=== PATIENT | male | born 1960 | race Caucasian/White ===

== ENCOUNTER 2018-08-14 13:59 | Inpatient (IN) | payer MEDICARE, MEDICAID ==
[~2018-08-14] VITALS: Ht 170.2 cm; Wt 108.4 kg
--- NOTE | 2018-08-14 14:09 | NUR ---
patient [id number], from [facility] c/o chest pain, pressure like 1 hour ago. on room air, breathing evenly and unlabored. connected to the monitor and pulse ox. kept comfortable, will continue to monitor accordingly.
[2018-08-14 14:54] LABS: BASOPHILS % (AUTO) 0.5 % (0.0-2.0); EOSINOPHILS % (AUTO) 3.8 % (0.0-6.0); HEMATOCRIT 37 % (39-51); HEMOGLOBIN 12.6 g/dL (13.5-17.5); LYMPHOCYTES # (AUTO) 1.2 /CMM (0.8-4.8); LYMPHOCYTES % (AUTO) 12.6 % (20.0-44.0); MEAN CORPUSCULAR HGB CONC 34 g/dl (31.0-36.0); MEAN CORPUSCULAR VOLUME 90 fL (80-96); MONOCYTES # (AUTO) 0.7 /CMM (0.1-1.30); MONOCYTES % (AUTO) 6.9 % (2.0-12.0); NEUTROPHILS # (AUTO) 7.2 /CMM (1.8-8.9); NEUTROPHILS % (AUTO) 76.2 % (43.0-81.0); PLATELET COUNT (AUTO) 254 /CMM (150-450); RED BLOOD CELL COUNT(AUTO) 4.15 MIL/uL (4.5-6.0); WHITE BLOOD COUNT (AUTO) 9.4 K/uL (4.3-11.0)
[2018-08-14 15:03] LABS: CARBON DIOXIDE 28 mmol/L (21-32); CHLORIDE 106 mmol/L (98-107); CREATININE 0.9 mg/dL (0.6-1.3); GLUCOSE 108 mg/dL (74-106); POTASSIUM 3.8 mmol/L (3.5-5.1); SODIUM SERUM 139 mmol/L (136-145); UREA NITROGEN, BLOOD 21 mg/dL (7-18)
--- NOTE | 2018-08-14 15:44 | NUR ---
CALLED ANGEL RIOS NP
--- NOTE | 2018-08-14 16:40 | NUR ---
REQUESTED TELE BED FOR THIS PATIENT
--- NOTE | 2018-08-14 17:26 | NUR ---
CALLED [facility] AND SPOKE TO TEN RN FOR NERI
[2018-08-14 18:14] LABS: MAGNESIUM 1.9 mg/dL (1.8-2.4)
--- NOTE | 2018-08-14 18:20 | NUR ---
FLUX CORE WELDERWHEEL POLISHER NOTES PATIENT RECEIVED VIA [facility] WITH ER STAFF. A/O 4 AND ABLE TO MAKE NEEDS KNOWN. ASSESSED NO SHORTNESS OF BREATH. ABDOMEN SOFT AND NON DISTENDED WITH ACTIVE BOWEL SOUNDS. DENIES PAIN AND DISCOMFORT AT THIS TIME. AMBULATORY WITH STAND BY ASSIST. IV SITE PRESENT ON RIGHT ANTECUBITAL GAUGE 20 WITH NO S/SX OF INFILTRATION. PLACED HEAD OF BED ELEVATED. ALL CONCERNS ADDRESSED. PLACED CALL LIGHT WITHIN REACH.
[2018-08-14 18:24] LABS: THYROID STIMULATING HORMONE 3.558 uIU/mL (0.358-3.74)
--- NOTE | 2018-08-14 18:43 | NUR ---
wheeled patient via gurney accompanied by EMT and rn in no apparent distress noted. Migdalia at bedside to assume care.
[2018-08-14] MEDS: PANTOPRAZOLE 40 MG TABLET.DR PO SCH (18:47)
[2018-08-14] MEDS: METOPROLOL TARTRATE 50 MG TABLET PO SCH ×2 (18:47→23:38)
[2018-08-14] MEDS ORDERED: MAGNESIUM HYDROXIDE 30 ML UDC PO PRN (19:00)
[2018-08-14] MEDS ORDERED: MORPHINE SULFATE INJ 2 MG/ML DISP.SYRIN IV PRN (19:00)
[2018-08-14] MEDS ORDERED: MAG HYDROX/AL HYDROX/SIMETH 30 ML UDC PO PRN (19:00)
[2018-08-14] MEDS ORDERED: ACETAMINOPHEN 325 MG TABLET PO PRN (19:00)
[2018-08-14] MEDS ORDERED: HYDROCODONE/APAP 5/325MG 1 EACH TABLET PO PRN (19:00)
[2018-08-14] MEDS ORDERED: ZOLPIDEM TARTRATE 5 MG TABLET PO PRN (19:00)
[2018-08-14] MEDS ORDERED: IV NS 0.9% 1,000 ML IV PRN (19:00)
[2018-08-14] MEDS ORDERED: ENOXAPARIN SODIUM 40 MG/0.4 ML DISP.SYRIN SQ SCH (19:00)
[2018-08-14] MEDS ORDERED: ONDANSETRON HCL/PF 4 MG/2 ML VIAL IVP PRN (19:00)
[2018-08-14] MEDS ORDERED: Z GUARD REMEDY 2 OZ OINT TP PRN (19:00)
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
[2018-08-14] MEDS: ALBUTEROL FS 2.5 MG/0.5 ML VIAL.NEB NEB SCH ×2 (19:12→23:30)
[2018-08-14 20:00] VITALS: BP 146/86
--- NOTE | 2018-08-14 21:14 | NUR ---
ASSISTANT PROFESSOR OF DIETETICS NOTES Terry Herndon made aware of patient's psych issues. Patient is going back to [facility] once cleared by vinyl cutter.
[2018-08-15] VITALS: BP 113/73
--- NOTE | 2018-08-15 03:18 | NUR ---
STERILE PROCESSING TECH NOTES Stool sample for Stool OB collected. Notified labs, spoke with Martin. Sample ready for grain picker at the sample storage.
[2018-08-15 04:00] VITALS: BP 112/70
[2018-08-15 05:07] LABS: OCCULT BLOOD STOOL POSITIVE (NEGATIVE)
[2018-08-15] MEDS: METOPROLOL TARTRATE 50 MG TABLET PO SCH ×3 (05:50→18:00)
--- NOTE | 2018-08-15 06:29 | NUR ---
TECHNICAL SUPPORT ASSISTANT CLOSING NOTES Patient noted intermittently asleep, on RA, no SOB/respiratory distress noted. All nursing needs attended. Kept on bed clean, dry and comfortable. Patient noted ambulating on the hallway to the station, gait stable. Encouraged patient to keep on bed rest as ordered. Patient verbalized understanding but still noted walking to the hallway. Instructed patient to kept on NPO for cardio consult. Patient noted NPO after midnight except meds. No new unsualities noted. On tele monitor with SR noted. Endorsed to the next shift.
[2018-08-15 07:19] LABS: BASOPHILS % (AUTO) 0.2 % (0.0-2.0); EOSINOPHILS % (AUTO) 5.7 % (0.0-6.0); HEMATOCRIT 38 % (39-51); HEMOGLOBIN 12.9 g/dL (13.5-17.5); LYMPHOCYTES % (AUTO) 22.4 % (20.0-44.0); MEAN CORPUSCULAR HGB CONC 34 g/dl (31.0-36.0); MEAN CORPUSCULAR VOLUME 89 fL (80-96); MONOCYTES # (AUTO) 0.6 /CMM (0.1-1.30); MONOCYTES % (AUTO) 6.5 % (2.0-12.0); NEUTROPHILS # (AUTO) 5.9 /CMM (1.8-8.9); NEUTROPHILS % (AUTO) 65.2 % (43.0-81.0); PLATELET COUNT (AUTO) 267 /CMM (150-450); RED BLOOD CELL COUNT(AUTO) 4.29 MIL/uL (4.5-6.0); WHITE BLOOD COUNT (AUTO) 9.1 K/uL (4.3-11.0)
[2018-08-15] MEDS ORDERED: PANTOPRAZOLE 40 MG TABLET.DR PO SCH (07:30)
[2018-08-15 07:45] LABS: ALANINE AMINOTRANSFERASE 21 U/L (12-78); ALBUMIN 3.6 g/dL (3.4-5.0); ALKALINE PHOSPHATASE 66 U/L (46-116); ASPARTATE AMINOTRANSFERASE 20 U/L (15-37); BILIRUBIN,TOTAL 0.2 mg/dL (0.2-1.0); CALCIUM, SERUM 9.2 mg/dL (8.5-10.1); CARBON DIOXIDE 25 mmol/L (21-32); CHLORIDE 107 mmol/L (98-107); CREATININE 1.1 mg/dL (0.6-1.3); GLUCOSE 110 mg/dL (74-106); MAGNESIUM 2.1 mg/dL (1.8-2.4); PHOSPHORUS 3.6 mg/dL (2.5-4.9); POTASSIUM 4.1 mmol/L (3.5-5.1); SODIUM SERUM 143 mmol/L (136-145); TOTAL PROTEIN, SERUM 6.7 g/dL (6.4-8.2); UREA NITROGEN, BLOOD 19 mg/dL (7-18)
[2018-08-15 08:00] VITALS: BP 150/94
--- NOTE | 2018-08-15 08:00 | NUR ---
MS RN NOTES PATIENT IN BED RESTING NO SOB OR ACUTE DISTRESS NOTED. PATIENT ALERT, ORIENTED X3 DENIES ANY PAIN. PATIENT SEEN AMBULATING IN THE HALLWAY. PERIPHERAL IV INTACT PATIENT. BED IN LOW LOCKED POSITION. CALL LIGHT WITHIN REACH.
[2018-08-15] MEDS: ALBUTEROL FS 2.5 MG/0.5 ML VIAL.NEB NEB SCH ×2 (08:23→16:12)
--- NOTE | 2018-08-15 08:30 | NUR ---
RN NOTES PATIENT REFUSED IV HYDRATION, MD AWARE.
[2018-08-15] MEDS ORDERED: ASPIRIN EC 81 MG TABLET.DR PO SCH (09:00)
[2018-08-15] MEDS: PANTOPRAZOLE 40 MG TABLET.DR PO SCH (09:25)
[2018-08-15] MEDS ORDERED: DOCU100C36 PO (09:53)
[2018-08-15] MEDS ORDERED: LORA1TAB PO (09:53)
[2018-08-15] MEDS ORDERED: LEVO50TA8 PO (09:53)
[2018-08-15] MEDS ORDERED: DIVA500T54 PO (09:53)
[2018-08-15] MEDS ORDERED: OMEP20CA10 PO (09:53)
[2018-08-15] MEDS ORDERED: GEMF600T5 PO (09:53)
[2018-08-15] MEDS ORDERED: AMLO5TAB9 PO (09:53)
[2018-08-15] MEDS ORDERED: PROP10TA10 PO (09:53)
[2018-08-15] MEDS ORDERED: LORA2TAB PO (09:53)
[2018-08-15] MEDS ORDERED: RISP2TAB5 PO (09:53)
[2018-08-15] MEDS ORDERED: CLOZ100T PO ×2 (09:53)
[2018-08-15] MEDS: NITROGLYCERIN 0.4 MG/TAB BOTTLE SL PRN ×2 (11:15→11:25)
--- NOTE | 2018-08-15 11:25 | NUR ---
Social service consult requested by DALE Herndon regarding pt. coming to [facility] from [facility] outpatient clinic. Pt. is a 57 year old who was sent to [facility] for chest pain. NADIA met with pt. bedside. Pt. is alert and oriented x 4. Pt. appears clean. When asked questions, pt. is slow to response. Pt. states he was at the [facility] outpatient clinic when he started to experience chest pain. Pt. resides at a [facility] facility located at [address] [place] [address] in [place] [address]. . retail salesperson there is Malika. Pt. states he has been residing at the [facility] since May 25, 2018. Pt. has a psychiatric diagnosis of Schizophrenia with Paranoid Features. Pt. denies any delusions and hallucinations at this time. Pt. would like to be discharged to his [facility] once medically cleared. NADIA updated clinical case manager Lesly Ramey regarding pt's discharge plan.
--- NOTE | 2018-08-15 11:41 | NUR ---
1100 PATIENT SEEN IN BED BREATHING 26 STATES "i AM HAVING CHEST PAIN." RATES PAIN 8/10 NC PLACED O2 ADMINISTERED AT 2LNC. 1105 PATIENT STILL COMPLAINING OF CP 8/10, NITRO ADMINISTEREDS SBP 154, PATIENT BREATHING HEAVILY AND CLENCHED FISTS. Finesse MADE EFFORT TO REACH DR. MCKINNEY TO INFORM OF CP AND PATIENT SYMPTOMS EFFORT. 1115 - BP 145/88 PATIENT STATES PAIN IS 4/10. 1125 PATIENT AGAIN COMPLAINING OF CP STATES PAIN IS 6/10 BP IS 155/75 HR IS 77 NITRO ADMINSTERED FOR SECOND DOSE. 1135 dR. Mckinney CALLED BACK, INFORMED OF PATIENT SYMPTOSM OF POSSIBLE ANXIETY ATTACK, PATIENT HAS NOT HAD HIS PSYC HOME MEDS THIS AM. AND PATIENT RECENT CP; STATES HE WILL REVIEW MED REC, DIRECTED NOT TO ADMINISTER NITRO AT THIS TIME HE WILL PLACE NEW ORDERS.
--- NOTE | 2018-08-15 11:50 | NUR ---
MS RN NOTES SPOKE TO ZHANE STUBBS TO MONITOR PATIENT. ASKED IF MORPHINE IV SHOULD BE ADMINISTERED, STATES TO ADMINISTER NOW . STATES HE WILL EVALUATE PATIENT AND RESTART HOME MEDICATION. MORPHINE IV ADMINISTERED. 1200 PATIENT STATES PAIN 0/10 APPEARS CALM AND COMFORTABLE. WILL CONTINUE TO MONITOR.
[2018-08-15] MEDS ORDERED: IOHEXOL-350 100 ML VIAL IV ONE (12:18)
[2018-08-15] MEDS ORDERED: IV NS 0.9% 250 ML IV ONE (12:18)
[2018-08-15] MEDS ORDERED: CT SWABBABLE VALVE TRANS SET 1 EA INFUS.SET MC ONE (12:18)
[2018-08-15] MEDS ORDERED: LORAZEPAM 1 MG TABLET PO PRN (13:00)
--- NOTE | 2018-08-15 13:00 | NUR ---
MS RN NOTES PATIENT SEEN AND EVALUATED BY ZHANE Dunne NO NEW ORDERS.
--- NOTE | 2018-08-15 13:10 | NUR ---
SW received a call from pt's [facility] provider Minnie [phone] informing SW that they would like to be involved regarding pt's medical care and treatment. Per Minnie she will email SW a summary of pt's current information.
--- NOTE | 2018-08-15 13:28 | NUR ---
Spoke to nurse at 1300hrs, she stated dr dominguez had cxlld exam.
[2018-08-15] MEDS ORDERED: METOPROLOL TARTRATE INJ 5 MG/5 ML AMPUL ONE ×2 (13:43→14:02)
--- NOTE | 2018-08-15 14:15 | NUR ---
patient returned from cta angiogram. during procedure he was given 35 mg metoprolol and one dose of nitro. patient is laying in bed in no apparent distress. vss at [id number]/75, hr 62 temp 98.5 rr of 20. will cont to monitor.
[2018-08-15] MEDS ORDERED: NITROGLYCERIN 0.4 MG/TAB BOTTLE SL ONE (15:00)
[2018-08-15] MEDS ORDERED: METOPROLOL TARTRATE INJ 5 MG/5 ML AMPUL IVP ONE (15:00)
[2018-08-15] MEDS ORDERED: IV NS 0.9% 500 ML IV ONE (15:00)
[2018-08-15 16:00] VITALS: BP 138/64
[2018-08-15] MEDS ORDERED: risperiDONE 1 MG TABLET PO SCH (17:00)
[2018-08-15] MEDS ORDERED: PROPRANOLOL HCL 10 MG TABLET PO SCH (17:00)
[2018-08-15] MEDS ORDERED: DIVALPROEX SODIUM 500 MG TABLET.DR PO SCH (17:00)
[2018-08-15] MEDS ORDERED: GEMFIBROZIL 600 MG TABLET PO SCH (17:00)
[2018-08-15 17:52] VITALS: BP 138/91
--- NOTE | 2018-08-15 18:00 | NUR ---
MS RN NOTES PATIENT SEEN AND EVALUATED BY ZHANE BEDOLLA OF [facility] RESULTS CONSULTED WITH DR. AMEZQUITA WHO CLEARED PATIENT FOR DISCHARGE. PATIENT TO BE DISCHARGED TO [facility].
--- NOTE | 2018-08-15 19:00 | NUR ---
MS RN NOTES PATIENT DISCHARGED TO [facility]. PATIENT ALERT, ORIENTED X3. IN STABLE CONDITION. MD AWARE OF ALL ABNORMAL TESTS. [facility] CALLED FOR PATIENT. DISCHARGE INSTRUCTIONS PROVIDED. PATIENT VERBALIZED UNDERSTANDING. PERIPHERAL IV REMOVED. WITH MINIMAL BLEEDING. ID BAND REMOVED. ALL BELONGINGS ACCOUNTED FOR. BELONGING LIST SIGNED. PATIENT ESCORTED TO [facility] BY CAIN.
--- NOTE | 2018-08-15 19:29 | NUR ---
ms rn close note bedside report given to security technician nurse. patient seen in bed resting. reviewed poc . ivf infusing to rac 20 no s/s of infiltration. bed down call light in reach, endorsed that cream for sacral and perineal area are at the bedside. vss patient continues to be on 2lnc and is breathing at a reg even rate of 18.
[2018-08-15] MEDS ORDERED: LORAZEPAM 1 MG TABLET PO SCH (22:00)
[2018-08-15] MEDS ORDERED: CLOZAPINE 100 MG TABLET PO SCH (22:00)
[2018-08-16] MEDS ORDERED: LEVOTHYROXINE SODIUM 50 MCG TABLET PO SCH (09:00)
[2018-08-16] MEDS ORDERED: CLOZAPINE 100 MG TABLET PO SCH (09:00)
[2018-08-16] MEDS ORDERED: DOCUSATE SODIUM 100 MG CAPSULE PO SCH (09:00)
[2018-08-16] MEDS ORDERED: AMLODIPINE BESYLATE 5 MG TABLET PO SCH (09:00)
== END 2018-08-15 19:00 | disposition home or self-care (01) | DRG 206 ==
LOC: ER 14:04 → TELE 17:06 → MED 08-15 10:12
PROVIDERS: ADMIT Hospitalist; ATTEND Hospitalist
DX: M94.0 Chondrocostal junction syndrome [Tietze] (principal); E78.5 Hyperlipidemia, unspecified; K21.9 Gastro-esophageal reflux disease without esophagitis; I10 Essential (primary) hypertension; D64.9 Anemia, unspecified; F17.200 Nicotine dependence, unspecified, uncomplicated; F41.9 Anxiety disorder, unspecified; J44.9 Chronic obstructive pulmonary disease, unspecified; M19.90 Unspecified osteoarthritis, unspecified site; F20.9 Schizophrenia, unspecified; Z68.37 Body mass index [BMI] 37.0-37.9, adult; E66.9 Obesity, unspecified; Z91.14 Patient's other noncompliance with medication regimen; G47.33 Obstructive sleep apnea (adult) (pediatric); I34.0 Nonrheumatic mitral (valve) insufficiency
CPT/HCPCS: 36415; 71045-TC; 75574; 80048-TC; 80053-TC; 80061-TC; 80305; 82272-TC; 82728-TC; 83540-TC; 83735-TC; 84100-TC; 84439-TC; 84443-TC; 84484-TC; 85025-TC; 87081-TC; 93307-TC; G0378; G0480; J1650; J2270; J3490; J7050; Q9967

== ENCOUNTER 2019-04-16 19:19 | Emergency (ER) | payer MEDICARE, OTHER ==
[~2019-04-16] VITALS: Ht 170.2 cm; Wt 109.3 kg
[~2019-04-16 19:19] MED LIST: AMLO5TAB9 PO; CLOZ100T PO; DIVA500T54 PO; DOCU100C36 PO; GEMF600T5 PO; LEVO50TA8 PO; LORA1TAB PO; LORA2TAB PO; OMEP20CA11 PO; PROP10TA10 PO; RISP2TAB5 PO
--- NOTE | 2019-04-16 19:25 | NUR ---
BIBA FOR C/O CP ALL OVER THE CHEST. NON- RADIATING. -N/V. - DIZZINESS. PLACED ON A MONTIOR ,VSS
--- NOTE | 2019-04-16 19:32 | NUR ---
SHAKIRA PATTON AT BEDSIDE TO BK MUIR.
[2019-04-16] MEDS ORDERED: ASPIRIN 325 MG TABLET ONE (19:42)
[2019-04-16] MEDS ORDERED: HYDROCODONE/APAP 5/325MG 1 EACH TABLET ONE ×2 (19:42→20:42)
[2019-04-16] MEDS ORDERED: ALBUTEROL FS 2.5 MG/3 ML VIAL.NEB ONE (19:51)
[2019-04-16] MEDS ORDERED: IPRATROPIUM NEB FS 0.5 MG/2.5 ML AMPUL.NEB ONE (19:51)
[2019-04-16 19:53] LABS: BASOPHILS # (AUTO) 0.1 /CMM (0.0-0.2); BASOPHILS % (AUTO) 0.9 % (0.0-2.0); EOSINOPHILS % (AUTO) 2.7 % (0.0-6.0); HEMATOCRIT 41 % (39-51); HEMOGLOBIN 13.4 g/dL (13.5-17.5); LYMPHOCYTES # (AUTO) 2.2 /CMM (0.8-4.8); LYMPHOCYTES % (AUTO) 18.8 % (20.0-44.0); MEAN CORPUSCULAR HGB CONC 33 g/dl (31.0-36.0); MEAN CORPUSCULAR VOLUME 89 fL (80-96); MONOCYTES # (AUTO) 0.7 /CMM (0.1-1.30); MONOCYTES % (AUTO) 5.5 % (2.0-12.0); NEUTROPHILS # (AUTO) 8.6 /CMM (1.8-8.9); NEUTROPHILS % (AUTO) 72.1 % (43.0-81.0); PLATELET COUNT (AUTO) 299 /CMM (150-450); RED BLOOD CELL COUNT(AUTO) 4.55 MIL/uL (4.5-6.0); WHITE BLOOD COUNT (AUTO) 11.9 K/uL (4.3-11.0)
[2019-04-16] MEDS ORDERED: HYDROCODONE/APAP 5/325MG 1 EACH TABLET PO ONE ×2 (20:00→21:00)
[2019-04-16] MEDS ORDERED: IPRATROPIUM NEB FS 0.5 MG/2.5 ML AMPUL.NEB NEB ONE (20:00)
[2019-04-16] MEDS ORDERED: ALBUTEROL FS 2.5 MG/3 ML VIAL.NEB CONTNEB ONE (20:00)
[2019-04-16] MEDS ORDERED: ASPIRIN 325 MG TABLET PO ONE (20:00)
[2019-04-16 20:13] LABS: CALCIUM, SERUM 9.8 mg/dL (8.5-10.1)
[2019-04-16] MEDS ORDERED: AZITHROMYCIN 250 MG TABLET ONE (20:43)
--- NOTE | 2019-04-16 20:54 | NUR ---
IV removed. Catheter intact and site benign. Pressure and 4x4 applied to site. No bleeding noted.
[2019-04-16] MEDS ORDERED: AZITHROMYCIN 250 MG TABLET PO ONE (21:00)
--- NOTE | 2019-04-16 22:09 | NUR ---
PT DID NOT WANT TO WAIT FOR THE PROCESS TO BE ACCEPTED AND BS TRANSFERRED TO [facility]. PT WALKED OUT AND REFUSED TO SIGN THE D/C PAPERS. IV LINE WAS D/C'D PRIOR TO D/C
[2019-04-16 22:35] VITALS: BP 127/75
== END 2019-04-16 22:09 | disposition home or self-care (01) ==
LOC: ER 19:20
DX: J40 Bronchitis, not specified as acute or chronic (principal); R07.89 Other chest pain; I10 Essential (primary) hypertension; E78.5 Hyperlipidemia, unspecified; K21.9 Gastro-esophageal reflux disease without esophagitis; E11.9 Type 2 diabetes mellitus without complications; F20.9 Schizophrenia, unspecified; F31.9 Bipolar disorder, unspecified; M19.90 Unspecified osteoarthritis, unspecified site; F17.200 Nicotine dependence, unspecified, uncomplicated; Z79.899 Other long term (current) drug therapy
CPT/HCPCS: 36415; 71045-TC; 80048-TC; 83880; 84484-TC; 85025-TC

== ENCOUNTER 2019-07-24 02:19 | Inpatient (IN) | payer MEDICARE, OTHER ==
[~2019-07-24] VITALS: Ht 172.7 cm; Wt 108.9 kg
[~2019-07-24 02:19] MED LIST changes: -OMEP20CA11 PO; +OMEP20CA15 PO
--- NOTE | 2019-07-24 02:25 | NUR ---
AMANDO FROM [facility] C/O AGGRESSION . PT IS GOING TO BE ADMITTED AT [facility] AND NEEDS TO KALI MEDICALLY CLEARED. NO C/O PAIN OR DISCOMFORT AT THIS TIME
[2019-07-24] MEDS ORDERED: LEVO150T PO (02:36)
[2019-07-24] MEDS ORDERED: ACET325T53 PO (02:36)
[2019-07-24] MEDS ORDERED: FENO48TA6 PO (02:36)
[2019-07-24] MEDS ORDERED: TEMA15CA5 PO (02:36)
[2019-07-24] MEDS ORDERED: ZIPR60CA2 PO (02:36)
[2019-07-24] MEDS ORDERED: LORA-259 PO (02:36)
[2019-07-24] MEDS ORDERED: BENA10TA74 PO (02:36)
[2019-07-24 02:45] LABS: BASOPHILS # (AUTO) 0.1 /CMM (0.0-0.2); BASOPHILS % (AUTO) 0.5 % (0.0-2.0); EOSINOPHILS % (AUTO) 2.3 % (0.0-6.0); HEMATOCRIT 41 % (39-51); HEMOGLOBIN 13.3 g/dL (13.5-17.5); LYMPHOCYTES # (AUTO) 2.1 /CMM (0.8-4.8); MEAN CORPUSCULAR HGB CONC 33 g/dl (31.0-36.0); MEAN CORPUSCULAR VOLUME 87 fL (80-96); MONOCYTES # (AUTO) 0.9 /CMM (0.1-1.30); MONOCYTES % (AUTO) 6.8 % (2.0-12.0); NEUTROPHILS # (AUTO) 9.2 /CMM (1.8-8.9); NEUTROPHILS % (AUTO) 73.4 % (43.0-81.0); PLATELET COUNT (AUTO) 275 /CMM (150-450); RED BLOOD CELL COUNT(AUTO) 4.69 MIL/uL (4.5-6.0); WHITE BLOOD COUNT (AUTO) 12.6 K/uL (4.3-11.0)
[2019-07-24 02:53] LABS: CALCIUM, SERUM 9.1 mg/dL (8.5-10.1); CARBON DIOXIDE 26 mmol/L (21-32); CHLORIDE 106 mmol/L (98-107); CREATININE 1.3 mg/dL (0.6-1.3); GLUCOSE 122 mg/dL (74-106); POTASSIUM 4.1 mmol/L (3.5-5.1); SODIUM SERUM 141 mmol/L (136-145); UREA NITROGEN, BLOOD 21 mg/dL (7-18)
[2019-07-24 02:54] LABS: APPEARANCE,URINE Clear (CLEAR); BILIRUBIN,URINE Negative (NEGATIVE); BLOOD, URINE Trace-intact Ery/uL (NEGATIVE); COLOR,URINE Yellow (YELLOW); KETONES,URINE Negative (NEGATIVE); LEUKOCYTE ESTERASE ,URINE Negative (NEGATIVE); NITRITE, URINE Negative (NEGATIVE); PROTEIN,URINE Negative (NEGATIVE); UGLUCOSE Negative (NEGATIVE); UROBILINOGEN,URINE 0.2 EU/dL (0.2)
[2019-07-24 03:01] LABS: ALANINE AMINOTRANSFERASE 32 U/L (12-78); ALBUMIN 3.6 g/dL (3.4-5.0); ALKALINE PHOSPHATASE 37 U/L (46-116); ASPARTATE AMINOTRANSFERASE 22 U/L (15-37); BILIRUBIN,DIRECT 0.1 mg/dL (0.0-0.2); BILIRUBIN,TOTAL 0.2 mg/dL (0.2-1.0); TOTAL PROTEIN, SERUM 6.7 g/dL (6.4-8.2)
[2019-07-24 03:04] LABS: ACETAMINOPHEN 0 ug/ml (10-30); ALCOHOL, BLOOD < 3 mg/dL (0-0); SALICYLATE 2.7 mg/dL (2.8-20.0)
--- NOTE | 2019-07-24 03:34 | NUR ---
REPORT GIVEN TO FAO AT [facility]
[2019-07-24 03:48] LABS: BACTERIA,URINE Few /HPF (None Seen); RBC,URINE 0-2 /HPF (0-2); SQUAMOUS EPITHELIAL CELL,UR Few /HPF (None Seen); WBC,URINE 0-2 /HPF (0-3)
[2019-07-24 04:00] VITALS: BP 138/82
[2019-07-24 04:01] VITALS: BP 138/82
--- NOTE | 2019-07-24 04:02 | NUR ---
PT WAS TRANSFERRED TO [facility] IN STABLE CONDITION.
[2019-07-24] MEDS ORDERED: MAGNESIUM HYDROXIDE 30 ML UDC PO PRN (04:30)
[2019-07-24] MEDS ORDERED: ACETAMINOPHEN 325 MG TABLET PO PRN (04:30)
[2019-07-24] MEDS ORDERED: BLOOD SUGAR DIAGNOSTIC 1 EACH STRIP IN ONE (04:30)
[2019-07-24] MEDS ORDERED: MAG HYDROX/AL HYDROX/SIMETH 30 ML UDC PO PRN (04:30)
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
[2019-07-24] MEDS ORDERED: LORAZEPAM 1 MG TABLET PO PRN (06:30)
[2019-07-24] MEDS ORDERED: ZOLPIDEM TARTRATE 5 MG TABLET PO PRN (06:30)
--- NOTE | 2019-07-24 06:38 | NUR ---
[facility] RN NOTE: NOTIFIED DR. CRUZ OF THE ADMISSION WITH ORDER TO FOLLOW THE STANDING ORDERS NOTED AND CARRIED OUT. NO NEW ORDERS GIVEN.
[2019-07-24 08:00] VITALS: BP 141/94
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
--- NOTE | 2019-07-24 11:51 | NUR ---
Family Contact Attempt: SW attempted to call the pts mother, Dunia ([phone]), three times but each time there was a busy dial tone so the SW was unable to make contact.
--- NOTE | 2019-07-24 11:52 | NUR ---
Facility Contact Attempt: SW called the facility the pt came from called [facility] ([phone]) about three times but was met with the message "We are sorry your call cannot be completed at this time. Please hang up and try your call again later. Thank you."
--- NOTE | 2019-07-24 11:53 | NUR ---
Psychosocial Attempt: After the SW was unable to make contact with the pt, the pts mother and the pts facility the SW looked through the notes from his previous visits and saw a note that stated that he had a , Latesha ([phone]). SW called this number and it led her to [facility] and the studio receptionist stated that the pt was discharged a long time ago and all of his information is locked up so she cannot provide any information to the SW.
[2019-07-24] MEDS ORDERED: LEVOTHYROXINE SODIUM 150 MCG TABLET PO SCH ×2 (13:30)
[2019-07-24] MEDS: BENAZEPRIL HCL 10 MG TABLET PO SCH (13:43)
[2019-07-24] MEDS: LEVOTHYROXINE SODIUM 75 MCG TABLET PO SCH (14:19)
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
[2019-07-24 16:00] VITALS: BP 112/54
[2019-07-24 20:00] VITALS: BP 138/78
[2019-07-24] MEDS: Fenofibrate 48 MG TABLET PO SCH (22:00)
[2019-07-24] MEDS: TEMAZEPAM 15 MG CAPSULE PO SCH (22:05)
[2019-07-24] MEDS: CLOZAPINE 100 MG TABLET PO SCH (22:05)
--- NOTE | 2019-07-24 22:37 | NUR ---
GPS RN NOTES: REFUSED MED PT REFUSED TRICOR 48 MG THAT IS DUE AT 2200. PT STATED, "I DONT NEED THAT! THE THE HELL OUT OF HERE." EXPLAIN RISKS AND BENEFITS. PT STILL REFUSED X3 CONTINUE TO MONITOR.
--- NOTE | 2019-07-25 05:29 | NUR ---
GPS RN NOTES: C/O OF ANXIOUS UPON DOING ROUNDS PT YELLING IN HIS ROOM. ASKED PT IF HE IS ANXIOUS. PT STATED, "YES". OFFERED ATIVAN 1MG PO PRN ORDERED. PT AGREED AND TOLERATED MEDICATION WELL. CONTINUE TO MONITOR.
[2019-07-25 07:53] LABS: CREATININE 1.1 mg/dL (0.6-1.3)
[2019-07-25 08:00] VITALS: BP 167/101
[2019-07-25 08:01] LABS: CHOLESTEROL 174 mg/dL (<200); HDL CHOLESTEROL 33 mg/dL (40-60); LDL 115 mg/dL (0-99); TRIGLYCERIDES 255 mg/dL (30-150)
[2019-07-25] MEDS: LEVOTHYROXINE SODIUM 75 MCG TABLET PO SCH (08:03)
[2019-07-25] MEDS: CLOZAPINE 25 MG TABLET PO SCH (08:19)
[2019-07-25] MEDS: BENAZEPRIL HCL 10 MG TABLET PO SCH (08:19)
--- NOTE | 2019-07-25 08:34 | NUR ---
Facility Contact Attempt: SW called the facility the pt came from called [facility] ([phone]) about three times but was met with the message "We are sorry your call cannot be completed at this time. Please hang up and try your call again later. Thank you."
--- NOTE | 2019-07-25 08:37 | NUR ---
Family Contact Attempt: SW attempted to call the pts mother, Dunia ([phone]), but there was a busy dial tone so the SW was unable to make contact once again.
--- NOTE | 2019-07-25 10:26 | NUR ---
GPS/RN-NOTES DR. CRUZ IN THE UNIT WITH VERBAL ORDER TO CHANGE ATIVAN 1MG P.O Q6HR PRN TO Q4HR PRN. NOTED AND CARRIED OUT.
[2019-07-25] MEDS: LORAZEPAM 1 MG TABLET PO PRN ×2 (11:32→17:39)
--- NOTE | 2019-07-25 11:36 | NUR ---
GPS/RN-NOTES NOTED PATIENT PACING IN THE UNIT WITH AGITATED BEHAVIOR YELLING WITH THE STAFF WHEN APPROACH AND REDIRECTED. ATIVAN OFFERED AND AGREED ,ATIVAN 1MG P.O GIVEN PRN ORDER. WILL CONT. MONITORING FOR SAFETY AND BEHAVIOR.
--- NOTE | 2019-07-25 12:30 | NUR ---
GPS/RN-NOTES PATIENT IN THE DAY ROOM GUARDED,CALM AT THIS TIME. NO ACUTE DISTRESS NOTED.
--- NOTE | 2019-07-25 15:11 | NUR ---
Psychosocial Attempt: SW attempted to speak to the pt and conduct his psychosocial but the pt became agitated and aggressive with the SW once again.
--- NOTE | 2019-07-25 15:14 | NUR ---
Public Guardian Office: NADIA called the Public Guardian Office and inquired about whether or not the pt is conserved and was informed by Isa that he is not coming up on their system.
--- NOTE | 2019-07-25 15:59 | NUR ---
Initial Discharge Plan: NADIA resides at [facility] located at [address] [place], [place] [id number]; ([phone]). NADIA attempted to call the facility many times but is unable to make contact to verify if the pt can return upon discharge. NADIA will work with the pt and the MD regarding appropriate discharge planning. NADIA will form a safe and proper discharge.
[2019-07-25 16:00] VITALS: BP 127/64
--- NOTE | 2019-07-25 17:40 | NUR ---
GPS/RN-NOTES NOTED PATIENT YELLING AND SCREAMING USING FOUL LANGUAGES WITH THE STAFF WHEN APPROACH REDIRECTED BUT PATIENT CONTINUE YELLING .ATIVAN 1MG P.O GIVEN PRN ORDER. WILL CONT. MONITORING FOR SAFETY AND BEHAVIOR.
--- NOTE | 2019-07-25 18:30 | NUR ---
GPS/RN-NOTES PATIENT WATCHING TV IN THE DAY ROOM ,CALM NO ACUTE DISTRESS NOTED.
[2019-07-25] MEDS: TEMAZEPAM 15 MG CAPSULE PO SCH (21:56)
[2019-07-25] MEDS: CLOZAPINE 100 MG TABLET PO SCH (21:56)
[2019-07-25] MEDS: Fenofibrate 48 MG TABLET PO SCH (22:00)
--- NOTE | 2019-07-25 22:01 | NUR ---
GPS RN NOTES: TRICOR 48 MG MEDICATION UNAVAILABLE TO ADMINISTER TO PT. NOTIFIED COMMUNICATIONS PROGRAM MANAGER ON SHIFT REGARDING THE UNAVAILABILITY OF MEDICATION. RN COMMUNICATIONS PROGRAM MANAGER AWARE. NOTIFIED PT REGARDING MEDICATION PT SHOOK HIS HEAD AND WENT BACK TO SLEEP. PT STATED, " NOT NOW!" CONTINUE TO MONITOR.
--- NOTE | 2019-07-25 22:59 | NUR ---
GPS RN NOTES: PLACED PT IN CRISTY CHAIR IN THE DAY ROOM DUE TO DISRUPTIVE BEHAVIOR. PT IS COMING IN AND OUT OF HIS ROOM, YELLING, VERBALLY AGGRESSIVE TOWARDS STAFF, AND PARANOID. PT IS SPEAKING INAPPROPRIATE LANGUAGE. STAFF MEMBER WITH PATIENT AT THE MOMENT. CONTINUE TO MONITOR.
[2019-07-26] MEDS: LORAZEPAM 1 MG TABLET PO PRN ×4 (01:21→17:00)
--- NOTE | 2019-07-26 01:25 | NUR ---
GPS RN NOTES: C/O OF ANXIOUS UPON DOING ROUNDS PT YELLING IN A CRISTY CHAIR. PT ANXIOUS. PT IRRITABLE AND AGITATED. OFFERED ATIVAN 1MG PO PRN ORDERED. PT AGREED AND TOLERATED MEDICATION WELL. MEDICAL STAFF WITH HIM AT THE DAY ROOM. WILL CONTINUE TO MONITOR.
[2019-07-26] MEDS: LEVOTHYROXINE SODIUM 75 MCG TABLET PO SCH (08:17)
[2019-07-26] MEDS: CLOZAPINE 25 MG TABLET PO SCH (08:17)
[2019-07-26] MEDS: BENAZEPRIL HCL 10 MG TABLET PO SCH (08:18)
[2019-07-26 09:09] VITALS: BP 161/96
--- NOTE | 2019-07-26 10:28 | NUR ---
gps plastic surgery nurse: notes noted pt going room to room, pacing, and increase in agitation and behavior escalating. pt request for a shot. dr. marie notified and made aware with order to give zyprexa 10mg im times one. order read back and carried out.
[2019-07-26] MEDS ORDERED: OLANZAPINE 10 MG VIAL IM ONE ×2 (10:30→18:00)
--- NOTE | 2019-07-26 10:35 | NUR ---
gps game developer: notes pt wants staff to give the shot in the arm. zyprexa 10mg im given to right deltoid without incident. will continue to monitor.
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
--- NOTE | 2019-07-26 11:35 | NUR ---
gps head men's tennis coach: notes escorted down via [place] accompanied by security and 1 staff at this time.
--- NOTE | 2019-07-26 11:42 | NUR ---
gps applier: notes back from x-ray at this time. pt calm at this time. will monitor.
--- NOTE | 2019-07-26 12:30 | NUR ---
gps loan officer: notes left wrist/hand x-ray resulted which is normal. md and pt made aware.
[2019-07-26 16:10] VITALS: BP 152/90
--- NOTE | 2019-07-26 17:50 | NUR ---
RN-CO: DR CRUZ CALLED BACK WITH ORDER OF ZYPREXIA 10 MG IM NOTED AND CARRIED OUT.
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
--- NOTE | 2019-07-26 17:51 | NUR ---
GPS ADVERTISING PROJECT MANAGER: NOTES PT THREATENING STAFF AND INCREASE AGITATION. PT REQUESTING FOR A SHOT AND GEODON. DR. CRUZ NOTIFIED AND MADE AWARE WITH ORDER TO GIVE HIM ANOTHER SHOT OF ZYPREXA 10MG IM X1. ORDER READ BACK AND CARRIED OUT.
--- NOTE | 2019-07-26 17:53 | NUR ---
RN-CO: ATIVAN 2 MG PO IS INEFFECTIVE, PATIENT REMAINS ANGRY A
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
--- NOTE | 2019-07-26 17:57 | NUR ---
GPS IT APPLICATION ARCHITECT: NOTES PT READY AND PREFERS TO GIVE THE SHOT ON HIS LEFT ARM. ZYPREXA 10MG IM GIVEN TO LEFT DELTOID PER PT REQUEST. SECURITY AND STAFF ON STANDBY. WILL CONTINUE TO MONITOR.
--- NOTE | 2019-07-26 19:20 | NUR ---
RN OPENING NOTES: PT. WALKING IN HALLWAY ,AGGRESIVE CONFUSED PARANOID , HYPERVERBAL ,DISORGNIZED EASILY AGITATED , ALL NEEDS ATTENDED ANTICIPATED, ENCOURAGED PT. TO VERBALIZED ANY FEELING , NO ACUTE DISTRESS NOTED , NEEDS FREQUENTLY REDIRECTIONS , REALITY ORIENTIONS PROVIDED, WILL CONTINUITY WITH CARE.
[2019-07-26 20:00] VITALS: BP 117/53
[2019-07-26] MEDS: CLOZAPINE 100 MG TABLET PO SCH (21:07)
[2019-07-26] MEDS: Fenofibrate 48 MG TABLET PO SCH (21:08)
[2019-07-26 22:00] VITALS: BP 115/65
[2019-07-26] MEDS: TEMAZEPAM 15 MG CAPSULE PO SCH (22:56)
[2019-07-27] MEDS: CLOZAPINE 25 MG TABLET PO SCH (08:18)
[2019-07-27] MEDS: LEVOTHYROXINE SODIUM 75 MCG TABLET PO SCH (08:18)
[2019-07-27] MEDS: BENAZEPRIL HCL 10 MG TABLET PO SCH (08:23)
--- NOTE | 2019-07-27 08:23 | NUR ---
RN NOTE: PT REFUSED AM VITAL SIGNS. UNABLE TO ADMINISTER BENAZEPRIL 10 MG. EDUCATED PT RE IMPORTANCE OF VITAL SIGN ASSESSMENT AND COMPLIANCE WITH MEDICATION ADMINISTRATION. PT CONTINUED TO REFUSE X 3. "FUCK YOU".
[2019-07-27] MEDS: LORAZEPAM 1 MG TABLET PO PRN ×2 (08:34→13:43)
--- NOTE | 2019-07-27 08:34 | NUR ---
RN NOTE: AGITATION PT EXHIBITING INCREASED ANXIETY. PT REFUSED AM VITAL SIGNS. VERBALLY AGGRESSIVE TO STAFF. "FUCK YOU". PT AGITATED AND ANGRY. MEDICATED WITH ATIVAN 2MG PO FOR INCREASED AGITATION AND ANXIETY.
--- NOTE | 2019-07-27 09:00 | NUR ---
RN OPENING NOTE:RECEIVED PT LYING IN BED. NO ACUTE DISTRESS NOTED. PT REFUSED AM VS. PT A+OX2. PT IS AGITATED, ARGUMENTATIVE, NON-COMPLIANT, AGRESSIVE AND HOSTILE AT TIMES. MEDICATED WITH ATIVAN 2MG PO PRN FOR AGITATION. PT STATES "FUCK YOU" WHEN APPROACHED.PT IS COMPLIANT WITH PO MEDICATIONS. PT DENIES SI/HI AT PRESENT TIME. PT VISIBLY REPONDING TO INTERNAL STIMULI. WILL CONT TO MONITOR PT FOR SAFETY AND BEHAVIOR PER GPS PROTOCOL.
--- NOTE | 2019-07-27 10:25 | NUR ---
RN NOTE: PT NOTED TO BE SEDATED. PT ASSISTED TO BED AND ENCOURAGED TO STAY IN BED DUE TO FALL RISK. PT REFUSED AND AMBULATED TO THE DAY ROOM. FREQUENT REDIRECTION GIVEN AND PT REFUSED TO COMPLY.
--- NOTE | 2019-07-27 11:00 | NUR ---
RN NOTE: PT PLACED IN CHAIR DUE TO BEING A HIGH FALL RISK AT PRESENT TIME. PT IS INTERMITTENTLY SLEEPING. BREATHING EQUAL RISE AND FALL WITH INSPIRATION AND EXPIRATION. NO ACUTE DISTRESS NOTED. WILL CONT TO MONITOR PT.
--- NOTE | 2019-07-27 13:38 | NUR ---
GPS RN NOTE: CONTACTED DR DONALDSON REGARDING PT SCREAMING YELLING EXTREMELY AGITATED NEW T.O. ORDER ATIVAN 2 MG PO Q4 HR ORDER PLACED AND CARED OUT.
--- NOTE | 2019-07-27 13:43 | NUR ---
RN NOTE: AGITATION PT WITH INCREASED AGITATION. YELLING AND SCREAMING. UNABLE TO REDIRECT. CALL TO DR. DONALDSON AND ATIVAN INCREASED FROM 2MG EVERY SIX HOURS TO 2MG EVERY FOUR. PT GIVEN ATIVAN 2MG PO PRN. WILL CONTINUE TO MONITOR
--- NOTE | 2019-07-27 19:20 | NUR ---
RN OPENING NOTES: PT. WAS WALKING AROUND THE UNIT , UNCOOPERTIVE ,AGGRESIVE CONFUSED PARANOID , HYPERVERBAL ,DISORGNIZED EASILY AGITATED , ALL NEEDS ATTENDED ANTICIPATED, ENCOURAGED PT. TO VERBALIZED ANY FEELING , NO ACUTE DISTRESS NOTED , NEEDS FREQUENTLY REDIRECTIONS , REALITY ORIENTIONS PROVIDED, WILL CONTINUITY WITH CARE.
[2019-07-27 20:55] VITALS: BP 103/59
[2019-07-27] MEDS: Fenofibrate 48 MG TABLET PO SCH (21:05)
[2019-07-27] MEDS: CLOZAPINE 100 MG TABLET PO SCH (21:05)
[2019-07-27] MEDS: TEMAZEPAM 15 MG CAPSULE PO SCH (21:47)
[2019-07-28 08:00] VITALS: BP 124/66
[2019-07-28] MEDS: BENAZEPRIL HCL 10 MG TABLET PO SCH (08:40)
[2019-07-28] MEDS: CLOZAPINE 25 MG TABLET PO SCH (08:40)
[2019-07-28] MEDS: LEVOTHYROXINE SODIUM 75 MCG TABLET PO SCH (08:40)
[2019-07-28] MEDS: LORAZEPAM 1 MG TABLET PO PRN ×2 (13:45→20:03)
[2019-07-28 16:00] VITALS: BP 127/55
--- NOTE | 2019-07-28 19:20 | NUR ---
GPS RN OPENING NOTES RECEIVED PATIENT FROM MORNING SHIFT ALERT AND ORIENTED X 1-2. VERBALLY RESPONSIVE BUT UNCOOPERATIVE. BREATHING REGULAR AND UNLABORED ON ROOM AIR. NO S/S OF PAIN/DISCOMFORT NOTED AT THIS TIME. BED LOW AND LOCKED ON LOW FOWLERS POSITION. WILL CONTINUE TO MONITOR FOR SAFETY AND BEHAVIOR.
--- NOTE | 2019-07-28 20:00 | NUR ---
GPS RN NOTES PATIENT SEEN PACING IN THE HALLWAY AGITATED. ASSISTED BACK TO THE ROOM. RE-ORIENTED BACK TO REALITY. ATIVAN 2MG GIVEN BY MOUTH. NON-PHARMACOLOGICAL INTERVENTIONS PROVIDED. WILL CONTINUE TO MONITOR.
[2019-07-28 20:13] VITALS: BP 115/68
[2019-07-28] MEDS: Fenofibrate 48 MG TABLET PO SCH (21:04)
[2019-07-28] MEDS: CLOZAPINE 100 MG TABLET PO SCH (21:04)
[2019-07-28] MEDS: TEMAZEPAM 15 MG CAPSULE PO SCH (21:04)
[2019-07-28 22:00] VITALS: BP 115/68
[2019-07-29] MEDS: LORAZEPAM 1 MG TABLET PO PRN ×2 (04:13→08:21)
--- NOTE | 2019-07-29 04:25 | NUR ---
GPS RN NOTES PATIENT WALKED OUT OF THE ROOM NAKED. INSTRUCTED TO GO BACK TO THE ROOM. SECURITY WAS PAGED FOR ASSISTANCE BUT BEFORE THEY ARRIVE, PATIENT WAS ALREADY INSIDE HIS ROOM. ATIVAN 2MG GIVEN BY MOUTH. NON-PHARMACOLOGICAL INTERVENTIONS PROVIDED. WILL CONTINUE TO MONITOR.
[2019-07-29 06:50] LABS: BASOPHILS # (AUTO) 0.1 /CMM (0.0-0.2); BASOPHILS % (AUTO) 0.5 % (0.0-2.0); EOSINOPHILS % (AUTO) 0.6 % (0.0-6.0); HEMATOCRIT 37 % (39-51); HEMOGLOBIN 12.1 g/dL (13.5-17.5); LYMPHOCYTES # (AUTO) 2.4 /CMM (0.8-4.8); LYMPHOCYTES % (AUTO) 13.5 % (20.0-44.0); MEAN CORPUSCULAR HGB CONC 33 g/dl (31.0-36.0); MEAN CORPUSCULAR VOLUME 88 fL (80-96); MONOCYTES # (AUTO) 1.2 /CMM (0.1-1.30); MONOCYTES % (AUTO) 6.4 % (2.0-12.0); NEUTROPHILS # (AUTO) 14.3 /CMM (1.8-8.9); PLATELET COUNT (AUTO) 262 /CMM (150-450); RED BLOOD CELL COUNT(AUTO) 4.16 MIL/uL (4.5-6.0); WHITE BLOOD COUNT (AUTO) 18.1 K/uL (4.3-11.0)
--- NOTE | 2019-07-29 07:58 | NUR ---
RN NOTE: PT PRESENT ASSESSING PT. NOTIFIED OF WBC 18.1 AND PROCALCITONIN 0.11.
[2019-07-29 08:00] VITALS: BP 106/74
[2019-07-29] MEDS: LEVOTHYROXINE SODIUM 75 MCG TABLET PO SCH (08:04)
--- NOTE | 2019-07-29 08:10 | NUR ---
RN NOTE: AGITATION PT HITTING HEAD ON WALL, ATTEMPTING TO GET INTO NURSES STATION. ESCORTED TO BED. PT NOT REDIRECTIBLE.
[2019-07-29] MEDS: BENAZEPRIL HCL 10 MG TABLET PO SCH (08:21)
[2019-07-29] MEDS: CLOZAPINE 25 MG TABLET PO SCH (08:21)
--- NOTE | 2019-07-29 08:21 | NUR ---
RN NOTE: AGITATION PT VISIBLY AGITATED AND IRRITABLE. HYPERVERBAL AND PACING IN HALLWAY. MEDICATED WITH ATIVAN 2MG PRN.
--- NOTE | 2019-07-29 08:30 | NUR ---
RN NOTE: RECEIVED PT AMBULATING IN HALLWAY. NO ACUTE DISTRESS NOTED. VSS, AFEBRILE. A+OX1 WITH GARBLED/PRESSURED SPEECH. ORDER FOR URINALYSIS AND KEFLEX DUR TO ELEVATED WBC AND URINARY FREQUENCY. PT ID DISORIENTED AND DISORGANIZED. PT NEEDS FREQUENT REDIRECTION. PT DENIES SI/HI AT PRESENT TIME. PT COOPERATIVE WITH MEDICATION ADMINISTRATION AND VITAL SIGNS THIS AM. PT MEDICATED WITH ATIVAN 2MG PO PRN FOR INCREASED AGITATION WILL CONT TO MONITOR PT FOR SAFETY AND BEHAVIOR PER GPS PROTOCOL
--- NOTE | 2019-07-29 08:50 | NUR ---
RN NOTE: ORDER FOR UNIALYSIS AND KEFLEX. PT SYMPTOMATIC WITH URINARY FREQUENCY + MALODOROUS URINE. WBC ELEVATED AT 18.1
[2019-07-29] MEDS ORDERED: CLOZAPINE 100 MG TABLET PO SCH (09:39)
--- NOTE | 2019-07-29 10:10 | NUR ---
RN NOTE: URINE COLLECTED AND SENT TO LAB
--- NOTE | 2019-07-29 11:15 | NUR ---
RN NOTE: RAPID RESPONSE PT NOTED TO BE WITH INCREASED LETHARGY WITH PERIODS OF AGITATION AND IRRITABILITY. PT POSITIONED IN CHAIR. VITAL SIGNS TAKEN: 94/54, 50, 85%, 14, BS 134. PT NOTED TO HAVE MOIST, PRODUCTIVE COUGH. O2 PLACED VIA NASAL CANNULA AND RAPID RESPONSE CALLED (11:25) 80/50, 98%, 98, 16 RAPID RESPONSE TEAM PRESENT. RN JACQUARD LOOM CARD CHANGER NOTIFIED NUNO HUNTER AND DR. MANZANO. DR. MANZANO TO ASSESS PT TODAY. (11:30) 89/50, 93%, 99, 14 (11:37) 80/50, 98%, 98, 14 NUNO BORING MACHINE OPERATOR PRODUCTION PAGED. PT PLACED IN [place], O2 CONT AT 2 L VIA NC. (11:51) PT CONT IN [place] POSITION 133/86, 101, 98%. PT CONT TO BE LETHARGIC WITH PERIODS OF AGITATION AND ATTEMPTING TO GET OUT OF BED. SITTER AT BEDSIDE. WILL CONT TO MONITOR PT.
[2019-07-29] MEDS ORDERED: CEPHALEXIN MONOHYDRATE 250 MG CAPSULE PO SCH (12:00)
[2019-07-29 12:35] VITALS: BP 94/54
[2019-07-29 12:45] LABS: APPEARANCE,URINE CLOUDY (CLEAR); BILIRUBIN,URINE NEGATIVE (NEGATIVE); BLOOD, URINE SMALL Ery/uL (NEGATIVE); COLOR,URINE YELLOW (YELLOW); KETONES,URINE NEGATIVE (NEGATIVE); LEUKOCYTE ESTERASE ,URINE NEGATIVE (NEGATIVE); NITRITE, URINE NEGATIVE (NEGATIVE); PROTEIN,URINE NEGATIVE (NEGATIVE); UGLUCOSE NEGATIVE (NEGATIVE); UROBILINOGEN,URINE 0.2 EU/dL (0.2)
--- NOTE | 2019-07-29 13:30 | NUR ---
RN-CO: Follow up CXR to radiology.
--- NOTE | 2019-07-29 14:07 | NUR ---
RN-CO: DR CRUZ ORDERED TO DISCONTINUE ATIVAN, NOTED AND CARRIED OUT.
--- NOTE | 2019-07-29 14:25 | NUR ---
RN-CO: Called for CXR.
--- NOTE | 2019-07-29 14:25 | NUR ---
RN NOTE: PT RESTLESS IN BED. ATTEMPTING TO PULL O2 OFF. OPPOSITIONAL TO CARE. ATTEMPTING TO GET OOB. PERICARE AND LINEN CHANGE. PT REPOSITIONED WITH HEAD UP IN BED. PT WITH MOIST PRODUCTIVE COUGH. RALES NOTED. CHEST X-RAY PENDING.
[2019-07-29 14:45] LABS: BACTERIA,URINE 1+ /HPF (None Seen); RBC,URINE 0-2 /HPF (0-2); SQUAMOUS EPITHELIAL CELL,UR Few /HPF (None Seen); URINE AMORPHOUS URATE Moderate /HPF (None Seen); WBC,URINE NONE SEEN /HPF (0-3)
--- NOTE | 2019-07-29 14:54 | NUR ---
RN NOTE: CALL TO X-RAY. X-RAY TO BE DONE WITHIN THE HALF HOUR.
--- NOTE | 2019-07-29 15:24 | NUR ---
RN-CO: ENGINEER FISHING VESSEL AT BED SIDE.
--- NOTE | 2019-07-29 15:47 | NUR ---
RN NOTE: DR. MANZANO AT BEDSIDE. ORDER TO TRANSFER PT TO TELEMETRY. DR CRUZ NOTIFIED, ORDER TO D/C HOLD AND CONTINUE MEDICATIONS.
--- NOTE | 2019-07-29 15:48 | NUR ---
RN NOTE: CALL TO ADDIE SILVA, PHONE WITH BUSY SIGNAL. NO FAMILY HAS BEEN ABLE TO BE CONTACTED SINCE ADMIT.
[2019-07-29 16:00] VITALS: BP 111/50
--- NOTE | 2019-07-29 16:10 | NUR ---
Group Note: SW encouraged pt to attend group therapy on 07/29/19 at 2pm discussing discharge planning. Pt is verbally and physically aggressive and attempted to hurt the SW so the SW did not deem the pt appropriate for group therapy.
--- NOTE | 2019-07-29 16:24 | NUR ---
RN NOTE: REPORT GIVEN TO JW BURGESS ON . PT TO TRANSFER TO ROOM 322 B.
--- NOTE | 2019-07-29 17:00 | NUR ---
GPS FISHER GILL NET NOTE: PT TRANSFERRED TO [facility] WITH O2 @ 2 LITERS VIA NC. VS 111/50, 98.4, 20, 106, 90%. PT LETHARGIC BUT AROUSES TO NOXIOUS STIMULI. PT HAS PERIODS OF AWAKENING WITH RESTLESSNESS AND IRRITABILITY. BREATHING IS LABORED WITH PERIODS OF APNEA. LEGAL HOLD D/C'D. PT TRANSFERRED VIA [facility] AND REPORT GIVEN TO 3W TEAM UPON ARRIVAL.
[2019-07-30] MEDS ORDERED: MAGN400O6 PO (09:54)
[2019-07-30] MEDS ORDERED: ZOLP5TAB8 PO (09:54)
[2019-07-30] MEDS ORDERED: CEPH500C2 PO (09:54)
[2019-07-30] MEDS ORDERED: CLOZ100T32 PO ×2 (09:54)
== END 2019-07-29 17:00 | disposition short-term general hospital (02) | DRG 885 ==
LOC: ER 02:22 → GPS 03:19
PROVIDERS: ADMIT Psychiatry & Neurology Psychiatry; ATTEND Nurse Practitioner Acute Care
DX: F20.0 Paranoid schizophrenia (principal); N39.0 Urinary tract infection, site not specified; F31.9 Bipolar disorder, unspecified; E78.5 Hyperlipidemia, unspecified; E11.9 Type 2 diabetes mellitus without complications; J45.909 Unspecified asthma, uncomplicated; I10 Essential (primary) hypertension; D72.829 Elevated white blood cell count, unspecified; E03.9 Hypothyroidism, unspecified; E66.9 Obesity, unspecified; K21.9 Gastro-esophageal reflux disease without esophagitis; Z79.899 Other long term (current) drug therapy; Z68.36 Body mass index [BMI] 36.0-36.9, adult; E78.1 Pure hyperglyceridemia; Z73.6 Limitation of activities due to disability; F29 Unspecified psychosis not due to a substance or known physiological condition; M19.90 Unspecified osteoarthritis, unspecified site
CPT/HCPCS: 36415; 71045-TC; 73110; 73130-TC; 80048-TC; 80061-TC; 80076-TC; 80305; 81000-TC; 82565-TC; 82962-TC; 84443-TC; 85025-TC; 87081-TC; G0480; J3490

== ENCOUNTER 2019-07-29 16:20 | Inpatient (IN) | payer MEDICARE, OTHER ==
[~2019-07-29] VITALS: Ht 162.6 cm; Wt 97.5 kg
[~2019-07-29 16:20] MED LIST changes: +ACET325T53 PO; -AMLO5TAB9 PO; +BENA10TA74 PO; -CLOZ100T PO; -DIVA500T54 PO; -DOCU100C36 PO; +FENO48TA6 PO; -GEMF600T5 PO; +LEVO150T PO; -LEVO50TA8 PO; -LORA1TAB PO; -LORA2TAB PO; -OMEP20CA15 PO; -PROP10TA10 PO; -RISP2TAB5 PO; +TEMA15CA5 PO
[2019-07-29] MEDS ORDERED: MAGNESIUM HYDROXIDE 30 ML UDC PO PRN ×2 (17:00→21:00)
[2019-07-29] MEDS ORDERED: ACETAMINOPHEN 325 MG TABLET PO PRN ×2 (17:00→21:00)
[2019-07-29] MEDS ORDERED: ONDANSETRON HCL/PF 4 MG/2 ML VIAL IVP PRN (17:00)
[2019-07-29] MEDS ORDERED: ZOLPIDEM TARTRATE 5 MG TABLET PO PRN ×2 (17:00→21:00)
[2019-07-29] MEDS ORDERED: LEVOFLOXACIN 500 MG /D5W 100ML 500 MG in PREMIX 1 EA IV SCH (17:00)
[2019-07-29] MEDS ORDERED: MAG HYDROX/AL HYDROX/SIMETH 30 ML UDC PO PRN ×2 (17:00→21:00)
[2019-07-29] MEDS ORDERED: Z GUARD REMEDY 2 OZ OINT TP PRN (17:00)
--- NOTE | 2019-07-29 17:15 | NUR ---
rn notes Received patient from GPS at this time
[2019-07-29] MEDS: LEVOFLOXACIN 750 MG /D5W 150ML 750 MG in PREMIX 1 EA IV SCH (18:26)
--- NOTE | 2019-07-29 18:48 | NUR ---
rn closing notes Patient remains on 2L nasal cannula. A/O x1 and was reported to me that this was patient all day, unable to be awakened up. Patient opens eyes when talk to but cannot respond. assistant professor of history aware. L upper arm with 22 gauge present and is patent. No new orders at this time, with med recon faxed to pharmacy. Bed at the lowest setting, call light within reach, side rails up x2. Will give report to NOC RN for NERI bedside.
--- NOTE | 2019-07-29 19:51 | NUR ---
RN OPENING NOTES: RECEIVED PATIENT IN BED, ASLEEP, WITH LOUD SNORING, AROUSABLE, VERY LETHARGIC. ANSWERS YES WHEN CALLED HIS NAME. HEAD OF BED ELEVATED AT 30 DEGREES AT ALL TIMES. NO SOB NOTED. WITH OCCATIONAL COUGH. WITH O2 AT 3L/MIN. BED ALARM ON. BED IN LOWEST AND LOCKED POSITION. 3 SIDERAILS UP. CALL LIGHT WITHIN REACH.
--- NOTE | 2019-07-29 19:56 | NUR ---
RECEIVED REPORTS AT 1911.
[2019-07-29 20:00] VITALS: BP 99/58
--- NOTE | 2019-07-29 20:20 | NUR ---
BED ALARM WENT OFF PATIENT WAS SITTING AT THE EDGE OF THE BED, MUMBLING AND HE SAID MEDICATIONS AND PATIENT TRIED TO PULL OUT THE IV, INSTRUCTED TO STOP IT AND PATIENT LIED DOWN AND REFUSED TO HAVE THE OXYGEN. PATIENT WENT BACK TO SLEEP AGAIN. BED ALARM TURNED ON AGAIN. INSTRUCTED THE GRAVITY FLOW IRRIGATOR TO MONITOR THE O2 SAT.
[2019-07-29 20:30] VITALS: BP 99/58
[2019-07-29] MEDS ORDERED: TEMAZEPAM 15 MG CAPSULE PO PRN ×2 (21:00→21:30)
--- NOTE | 2019-07-29 21:07 | NUR ---
V/S TAKEN BY CAIN AT 2OOO. RECORDED.
[2019-07-29] MEDS ORDERED: Fenofibrate 48 MG TABLET PO SCH (22:00)
[2019-07-29] MEDS ORDERED: CLOZAPINE 100 MG TABLET PO SCH (22:00)
--- NOTE | 2019-07-29 22:00 | NUR ---
PATIENT PULLED OUT THE IVF.NO BLEEDING NOTED.
[2019-07-29 22:07] VITALS: BP 99/58
[2019-07-30] VITALS: BP 111/45
--- NOTE | 2019-07-30 00:33 | NUR ---
PATIENT HAS A LOT OF PHLEGM, AND STILL VERY LETHARGIC, UNABLE TO TAKE THE PO KEFLEX AT THIS TIME, INFORMED UTILITY TECH ZHANE RIOS, WAITING FOR THE RESPONSE.
[2019-07-30] MEDS: IPRATROPIUM NEB FS 0.5 MG/2.5 ML AMPUL.NEB NEB SCH ×7 (03:30→23:30)
[2019-07-30] MEDS: ALBUTEROL FS 2.5 MG/3 ML VIAL.NEB NEB SCH ×7 (03:30→23:30)
--- NOTE | 2019-07-30 03:35 | NUR ---
IV REINSERTED BY THE CHARGE NURSE SURINDER AT THE RIGHT HAND G24. COVERED WITH KERLIX.
--- NOTE | 2019-07-30 03:36 | NUR ---
PATIENT IS AWAKE NOW AT THIS TIME. SLIGHTLY AGITATED BECAUSE HE WANTS TO HAVE CIGARETTE. INSTRUCTED HIM THAT IT'S NOT ALLOWED,PATIENT CALMED DOWN. PATIENT IS SLIGHTLY CONFUSED.
--- NOTE | 2019-07-30 04:13 | NUR ---
PATIENT IS SCREAMING, AGITATED, REMOVED HIS TELE MONITOR LEADS. PATIENT KEEPS SAYING HE WANTS TO HAVE CIGARETTE. PATIENT VERBALIZED HE WANTS TO GET DISCHARGED, DEANDRE CADENA MADE AWARE AND SECURITIES ARE INSIDE THE ROOM TALKING TO THE PATIENT.
--- NOTE | 2019-07-30 04:26 | NUR ---
INFORMED EDUCATION TEACHER ZHANE RIOS OF PATIENT'S BEHAVIOR AND REMOVAL OF TELE MONITOR LEADS.
[2019-07-30] MEDS: CEPHALEXIN MONOHYDRATE 250 MG CAPSULE PO SCH ×2 (04:45)
--- NOTE | 2019-07-30 06:12 | NUR ---
RN CLOSING NOTES: PATIENT RESTING IN BED. ASLEEP. NO SOB NOTED. CALL LIGHT WITHIN REACH. BED ALARM ON. CHARGE NURSE SURINDER AWARE PATIENT'S TELE MONITOR LEADS OFF. PATIENT TOOK OFF HIS GOWN AND PUT ON HIS OWN CLOTHES.
--- NOTE | 2019-07-30 06:18 | NUR ---
BED ALARM ON AND BED IN LOWEST AND LOCKED POSITION
[2019-07-30 06:23] LABS: BASOPHILS % (AUTO) 0.2 % (0.0-2.0); EOSINOPHILS % (AUTO) 0.2 % (0.0-6.0); HEMATOCRIT 37 % (39-51); LYMPHOCYTES % (AUTO) 8.2 % (20.0-44.0); MEAN CORPUSCULAR HGB CONC 32 g/dl (31.0-36.0); MEAN CORPUSCULAR VOLUME 89 fL (80-96); MONOCYTES # (AUTO) 0.7 /CMM (0.1-1.30); MONOCYTES % (AUTO) 5.7 % (2.0-12.0); NEUTROPHILS # (AUTO) 10.2 /CMM (1.8-8.9); NEUTROPHILS % (AUTO) 85.7 % (43.0-81.0); PLATELET COUNT (AUTO) 271 /CMM (150-450); WHITE BLOOD COUNT (AUTO) 11.9 K/uL (4.3-11.0)
[2019-07-30 07:06] LABS: CALCIUM, SERUM 9.1 mg/dL (8.5-10.1); CREATININE 1.6 mg/dL (0.6-1.3); MAGNESIUM 2.5 mg/dL (1.8-2.4); PHOSPHORUS 2.5 mg/dL (2.5-4.9); POTASSIUM 4.4 mmol/L (3.5-5.1)
[2019-07-30] MEDS ORDERED: LEVOTHYROXINE SODIUM 75 MCG TABLET PO SCH ×2 (07:30→11:30)
--- NOTE | 2019-07-30 07:30 | NUR ---
RN OPENING NOTES RECEIVED PATIENT IN BED WATCHING TV. A/OX2-3, ABLE TO MAKE NEEDS KNOWN. NOT IN ANY FORM OF DISTRESS, NO SOB. DENIED PAIN OR DISCOMFORT AT THIS TIME. DENIED SI/HI. IV ACCESS INTACT AND PATENT. KEPT PATIENT SAFE AND COMFORTABLE. BED IN LOW/LOCKED POSITION, SIDERAILS UPX2, CALL LIGHT IN REACH. WILL MONITOR ACCORDINGLY.
[2019-07-30 08:00] VITALS: BP 135/72
[2019-07-30] MEDS ORDERED: CLOZAPINE 25 MG TABLET PO SCH (09:00)
[2019-07-30] MEDS ORDERED: CLOZAPINE 100 MG TABLET PO SCH ×3 (09:00→22:00)
[2019-07-30] MEDS ORDERED: BENAZEPRIL HCL 10 MG TABLET PO SCH ×2 (09:00→11:30)
--- NOTE | 2019-07-30 09:15 | NUR ---
RN NOTES ENDORSED TO DEIDRE BURGESS FOR CONTINUITY OF CARE.
--- NOTE | 2019-07-30 09:20 | NUR ---
m/s loss prevention supervisor: notes pt getting irritated, getting his face in front of staff and threatening to leave the hospital and verbally abusive to staff m/b screaming and yelling. pt refused to listened when teaching and education provided. dr. marie notified and made aware re: behavior with order to give ativan 1mg po/iv q 6 hours prn. order read back and carried out. Addendum: 07/30/19 at 1026 by DEIDRE HARRELL WOOD WINDOW AND DOOR CRAFTSMAN also pt keeps insisting that his name is pancho kirby.
[2019-07-30] MEDS: LORAZEPAM 1 MG TABLET PO PRN (09:27)
[2019-07-30] MEDS ORDERED: LORAZEPAM INJ 2 MG/ML VIAL IM PRN (09:30)
[2019-07-30] MEDS ORDERED: ZOLP5TAB8 PO (09:54)
[2019-07-30] MEDS ORDERED: CLOZ100T32 PO ×2 (09:54)
[2019-07-30] MEDS ORDERED: CEPH500C2 PO (09:54)
[2019-07-30] MEDS ORDERED: MAGN400O6 PO (09:54)
--- NOTE | 2019-07-30 10:18 | NUR ---
Senior Adults Director Contact: NADIA called Sarah ([phone])radha for [facility] and Dr. Nicholas, who stated that she will work on the phone lines. She stated that the pt can return to the facility and that she will be requesting paperwork at the time of discharge.
--- NOTE | 2019-07-30 10:28 | NUR ---
m/s academic tutor: notes received order to continue pt on hold. pt behavior remains unpredictable. will continue to monitor.
--- NOTE | 2019-07-30 11:09 | NUR ---
WOUND CARE CONSULT: UNABLE TO SEE PT FOR SKIN ASSESSMENT DUE TO PT AGITATED AND WALKING IN HALLWAY ACCOMPANIED BY NURSE. PT IS AMBULATORY AND CONTINENT PER NURSING REPORT. WILL SEE PRN. CURRENT OLIVIA SCORE IS 20.
--- NOTE | 2019-07-30 11:30 | NUR ---
m/s master motorcycle technician: notes informed pt that he has a court hearing at 1400 today. copy of hold is with pt.
[2019-07-30] MEDS: NICOTINE PATCH (14MG) 14 MG PATCH.TD24 TD SCH ×2 (11:57→12:00)
--- NOTE | 2019-07-30 12:00 | NUR ---
m/s custom shop worker: psych f/u seen by dr. marie with no new order.
--- NOTE | 2019-07-30 12:16 | NUR ---
m/s button inspector: nephro f/u seen by dr. hernandez at this time.
--- NOTE | 2019-07-30 12:25 | NUR ---
m/s implementation coordinator: notes clean catch urine collected. called lab to case picker specimen, spoke to janessa.
--- NOTE | 2019-07-30 12:52 | NUR ---
m/s living specialist: notes offered nicotine patch x3, but pt refused.
--- NOTE | 2019-07-30 13:55 | NUR ---
m/s engineering drafter: notes pt getting irritated, awaiting for his court hearing. f/u made to social research assistant (rosanna) and informed me that his hearing was cancelled due to his hold status. informed pt and he was upset about it. informed him that dental secretary will f/u and will let us know when is the next court hearing.
--- NOTE | 2019-07-30 14:10 | NUR ---
m/s health promotion educator: notes mariam ([email or web address]) called and informed that the court made a mistake and will come tomorrow. pt made aware and still mad. encourage to verbalized feelings. will continue to monitor.
[2019-07-30 14:38] LABS: APPEARANCE,URINE SL CLOUDY (CLEAR); BILIRUBIN,URINE NEGATIVE (NEGATIVE); BLOOD, URINE TRACE-INTA Ery/uL (NEGATIVE); COLOR,URINE DARK YELLO (YELLOW); KETONES,URINE TRACE (NEGATIVE); LEUKOCYTE ESTERASE ,URINE NEGATIVE (NEGATIVE); NITRITE, URINE NEGATIVE (NEGATIVE); PROTEIN,URINE NEGATIVE (NEGATIVE); UGLUCOSE NEGATIVE (NEGATIVE)
[2019-07-30 14:43] LABS: CREATININE, URINE 235.7 MG/DL (30.0-125.0); URINE TOTAL PROTEIN 32.9 mg/dL (0-11.9)
[2019-07-30 15:03] LABS: EOSINOPHIL,URINE None Seen
[2019-07-30 15:04] LABS: BACTERIA,URINE None seen /HPF (None Seen); SQUAMOUS EPITHELIAL CELL,UR Few /HPF (None Seen); WBC,URINE 0-2 /HPF (0-3)
--- NOTE | 2019-07-30 15:10 | NUR ---
m/s pharmacy clinical coordinator: notes received a call claiming she is a admin at one of the facility in [place] and she claims that pt has been calling multiple times. per caller id the name says oscar wallace. mariam (hernandez) made aware.
--- NOTE | 2019-07-30 15:45 | NUR ---
m/s employee adviser: notes renal us and urinalysis resulted. dr. hernandez made aware with no new order.
--- NOTE | 2019-07-30 16:00 | NUR ---
m/s industrial maintenance mechanic: notes refused vital signs for 1600.
[2019-07-30] MEDS: CLOZAPINE 100 MG TABLET PO SCH ×2 (16:56→21:52)
--- NOTE | 2019-07-30 17:00 | NUR ---
m/s grinder and honer operator automatic: notes dinner served. pt behavior remains unpredictable. pt at times will just scream/yelling at the wall or tv screen. pt remains easily irritated. reality orientation provided prn. will continue to monitor.
[2019-07-30] MEDS: LEVOFLOXACIN 750 MG /D5W 150ML 750 MG in PREMIX 1 EA IV SCH (17:08)
--- NOTE | 2019-07-30 19:10 | NUR ---
RN PM NOTE BEDSIDE REPORT RECIEVED FROM DEIDRE MARTINEZ. PATIENT SITTING ON BED. RODY SITTER AT THE BEDSIDE. PATIENT DENIES SI/HI. PATIENT STATES "IS SOMEBODY GOING TO THROW MY BED OUT THE WINDOW." PATIENT REASSURED OF HAVING SAFE ENVIRONMENT. PATIENT EXHIBITING SOME DELUSION AND PARANOIA. REVIEWED COURT DATE REGARDING HOLD SCHEDULED FOR TOMORROW. PT HAS RIGHT HAND #20 THAT IS PATENT. PATIENT IS NOT ACTING VIOLENT PATIENT LET IN ROOM WHERE HE LAID DOWN AND PULLED BLANKET OVER SELF.
--- NOTE | 2019-07-30 19:14 | NUR ---
m/s design technician: notes bedside report given to negra (lilliam) for continuity of care. sitter at bedside.
[2019-07-30] MEDS: TEMAZEPAM 15 MG CAPSULE PO SCH (21:52)
[2019-07-30] MEDS: Fenofibrate 48 MG TABLET PO SCH (21:52)
[2019-07-30 22:00] VITALS: BP 117/53
--- NOTE | 2019-07-30 22:07 | NUR ---
PT REFUSING NEW IV, PT REFUSING ARMBAND REAPPLICATION. po medications administered. patient iv fallen out due to loose tape. attempted to perform restart. patient armband fell off. attempted to reapply patient refusing. states, "no i don't want to do that right now I want to go to sleep." patient armband fell off. attempted to reapply patient refusing. states,"I am not Dakota Muñiz my name is Bernardino Vazquez a from [facility]. Dont touch me." mercy thomas continues to sit at the bedside will cont to monitor.
[2019-07-31] MEDS: IPRATROPIUM NEB FS 0.5 MG/2.5 ML AMPUL.NEB NEB SCH ×6 (03:17→23:30)
[2019-07-31] MEDS: ALBUTEROL FS 2.5 MG/3 ML VIAL.NEB NEB SCH ×6 (03:17→23:30)
--- NOTE | 2019-07-31 06:30 | NUR ---
RN PM CLOSING NOTE PATIENT LAYING IN BED WITH EYES CLOSED AROUSABLE TO PAIN SOMEWHAT LETHARGIC/SEDATED. RODY SITTER AT THE BEDSIDE. PATIENT STILL DENIES SI/HI. PATIENT NOT ACTING APPROPRIATE STATES "WHAT THE FUCK, WHY ARE YOU WAKING ME UP." ALONG WITH INCOMPREHENSIBLE EXPRESSIONS. DISORGANIZED THOUGHT PROCESS PRESENT. PATIENT REASSURED OF HAVING SAFE ENVIRONMENT. COURT DATE REGARDING HOLD SCHEDULED FOR TODAY. PT HAS NO IV ACCESS. PATIENT LEFT IN ROOM IN BED SR X2 WITH CALL LIGHT IN REACH. Addendum: 07/31/19 at 0651 by MARIAM LOZANO RN SPO2 ON RA REMAINS 95%
[2019-07-31 06:35] LABS: BASOPHILS % (AUTO) 0.3 % (0.0-2.0); EOSINOPHILS % (AUTO) 1.1 % (0.0-6.0); HEMATOCRIT 38 % (39-51); HEMOGLOBIN 12.1 g/dL (13.5-17.5); LYMPHOCYTES # (AUTO) 1.7 /CMM (0.8-4.8); MEAN CORPUSCULAR HGB CONC 32 g/dl (31.0-36.0); MEAN CORPUSCULAR VOLUME 88 fL (80-96); MONOCYTES # (AUTO) 1.1 /CMM (0.1-1.30); MONOCYTES % (AUTO) 8.2 % (2.0-12.0); NEUTROPHILS # (AUTO) 10.1 /CMM (1.8-8.9); NEUTROPHILS % (AUTO) 77.4 % (43.0-81.0); PLATELET COUNT (AUTO) 324 /CMM (150-450); RED BLOOD CELL COUNT(AUTO) 4.29 MIL/uL (4.5-6.0)
[2019-07-31 07:20] LABS: ALBUMIN 3.1 g/dL (3.4-5.0); BILIRUBIN,TOTAL 0.3 mg/dL (0.2-1.0); CALCIUM, SERUM 8.7 mg/dL (8.5-10.1); CREATININE 1.4 mg/dL (0.6-1.3); MAGNESIUM 2.5 mg/dL (1.8-2.4); PHOSPHORUS 3.2 mg/dL (2.5-4.9); POTASSIUM 4.7 mmol/L (3.5-5.1); TOTAL PROTEIN, SERUM 7.2 g/dL (6.4-8.2)
--- NOTE | 2019-07-31 07:50 | NUR ---
MS RN OPENING NOTE PATIENT IN BED RESTING COMFORTABLY. PATIENT IN NO ACUTE DISTRESS. NO SOB NOTED. PATIENT BREATHING IS EVEN AND UNLABORED. PATIENT MAINTAINED ON A 1:[address]UT[address] IN PLACE. PATIENT BED IS LOCKED AND IN LOWEST POSITION. CALL LIGHT WITHIN REACH. WILL CONTINUE TO MONITOR.
[2019-07-31 08:00] VITALS: BP 100/68
[2019-07-31] MEDS ORDERED: PIPERACILLIN /TAZOBACTAM 3.375 G in IV D5W 50 ML IV ONE (08:00)
[2019-07-31] MEDS: CLOZAPINE 100 MG TABLET PO SCH ×4 (08:40→20:10)
[2019-07-31] MEDS: NICOTINE PATCH (14MG) 14 MG PATCH.TD24 TD SCH (08:40)
[2019-07-31] MEDS: LEVOTHYROXINE SODIUM 75 MCG TABLET PO SCH (08:40)
[2019-07-31] MEDS ORDERED: BENAZEPRIL HCL 10 MG TABLET PO SCH (09:00)
[2019-07-31] MEDS: PIPERACILLIN /TAZOBACTAM 3.375 G in IV D5W 100 ML IV SCH ×2 (13:42→21:05)
[2019-07-31 16:00] VITALS: BP 106/70
[2019-07-31] MEDS: LEVOFLOXACIN 750 MG /D5W 150ML 750 MG in PREMIX 1 EA IV SCH (17:44)
--- NOTE | 2019-07-31 18:36 | NUR ---
MS RN CLOSING NOTE PATIENT IN BED RESTING COMFORTABLY. PATIENT IN NO ACUTE DISTRESS. NO SOB NOTED. PATIENT BREATHING IS EVEN AND UNLABORED. PATIENT MAINTAINED ON A 1:[address]AF[address] PRECAUTIONS IN PLACE. PATIENT KEPT CLEAN, DRY AND COMFORTABLE THROUGHOUT SHIFT. PATIENT IV PATENT AND INTACT. PATIENT BED IS LOCKED AND IN LOWEST POSITION. CALL LIGHT WITHIN REACH. WILL ENDORSE CARE TO PM SHIFT FOR NERI.
[2019-07-31 19:58] VITALS: BP 103/68
[2019-07-31] MEDS: GUAIFENESIN 300 MG/15 ML UDC PO PRN (20:09)
[2019-07-31] MEDS: Fenofibrate 48 MG TABLET PO SCH (21:05)
[2019-07-31] MEDS: TEMAZEPAM 15 MG CAPSULE PO SCH (21:05)
[2019-07-31] MEDS: HYDROCODONE/APAP 5/325MG 1 EACH TABLET PO PRN (22:48)
--- NOTE | 2019-07-31 22:48 | NUR ---
norco administered patient complaining of pain to groin in legs. patient has no visible swelling in the area. patient stating "I need the salt shakers. i have pain from the football." norco administered as ordered for pain in legs patient rates 10/29.
[2019-08-01] MEDS: ALBUTEROL FS 2.5 MG/3 ML VIAL.NEB NEB SCH ×6 (02:58→23:34)
[2019-08-01] MEDS: IPRATROPIUM NEB FS 0.5 MG/2.5 ML AMPUL.NEB NEB SCH ×6 (02:58→23:34)
[2019-08-01] MEDS: PIPERACILLIN /TAZOBACTAM 3.375 G in IV D5W 100 ML IV SCH ×3 (05:24→21:29)
[2019-08-01 06:16] LABS: BASOPHILS # (AUTO) 0.1 /CMM (0.0-0.2); BASOPHILS % (AUTO) 0.4 % (0.0-2.0); EOSINOPHILS % (AUTO) 1.3 % (0.0-6.0); HEMATOCRIT 37 % (39-51); LYMPHOCYTES # (AUTO) 1.3 /CMM (0.8-4.8); LYMPHOCYTES % (AUTO) 9.4 % (20.0-44.0); MEAN CORPUSCULAR HGB CONC 33 g/dl (31.0-36.0); MEAN CORPUSCULAR VOLUME 88 fL (80-96); MONOCYTES # (AUTO) 0.9 /CMM (0.1-1.30); MONOCYTES % (AUTO) 6.6 % (2.0-12.0); NEUTROPHILS # (AUTO) 11.4 /CMM (1.8-8.9); NEUTROPHILS % (AUTO) 82.3 % (43.0-81.0); PLATELET COUNT (AUTO) 300 /CMM (150-450); RED BLOOD CELL COUNT(AUTO) 4.17 MIL/uL (4.5-6.0); WHITE BLOOD COUNT (AUTO) 13.9 K/uL (4.3-11.0)
[2019-08-01 06:43] LABS: CALCIUM, SERUM 8.9 mg/dL (8.5-10.1); CREATININE 1.3 mg/dL (0.6-1.3); POTASSIUM 4.7 mmol/L (3.5-5.1)
--- NOTE | 2019-08-01 07:15 | NUR ---
MS RN NOTES PATIENT IN BED ALERT ORIENTED X 1-2 .NO ACUTE DISTRESS NOTED, BREATHING UNLABORED. IV ACCESS PATENT AND INTACT, NO REDNESS OR SWELLING NOTED. SITTER A BED SIDE. SAFETY MEASURES IN PLACE. CALL LIGHT WITHIN REACH. WILL CONTINUE TO MONITOR ACCORDINGLY.
[2019-08-01] MEDS: LEVOTHYROXINE SODIUM 75 MCG TABLET PO SCH (07:43)
[2019-08-01] MEDS: NICOTINE PATCH (14MG) 14 MG PATCH.TD24 TD SCH (08:52)
[2019-08-01] MEDS: CLOZAPINE 100 MG TABLET PO SCH ×4 (09:19→21:29)
[2019-08-01 16:00] VITALS: BP 132/60
[2019-08-01] MEDS: LEVOFLOXACIN 750 MG /D5W 150ML 750 MG in PREMIX 1 EA IV SCH (18:00)
--- NOTE | 2019-08-01 18:44 | NUR ---
MS RN NOTES PATIENT IN BED ALERT ORIENTED X 1-2 .NO ACUTE DISTRESS NOTED, BREATHING UNLABORED. IV ACCESS PATENT AND INTACT, NO REDNESS OR SWELLING NOTED. SITTER A BED SIDE. NEEDS ATTENDED AND ANTICIPATED. KEPT CLEAN DRY AND COMFORTABLE. SAFETY MEASURES IN PLACE. CALL LIGHT WITHIN REACH. WILL ENDORSE TO NIGHT NURSE FOR CONTINUITY OF CARE.
--- NOTE | 2019-08-01 19:35 | NUR ---
RN OPEN NOTES RECEIVED PATIENT AWAKE SITTING ON BED. A/OX1-2. NO SIGNS OF DISTRESS OR DISCOMFORT. BREATHING EVEN AND UNLABORED. DENIES SI/HI. APPEARS RESTLESS AND DISORIENTED. IV ACCESS IN KIERRA, PATENT AND INTACT, NO SIGNS OF REDNESS OR INFILTRATION. BED IN LOW LOCKED POSITION WITH SIDE RAILS X2. CALL LIGHT WITHIN REACH. WILL CONTINUE TO MONITOR. Addendum: 08/01/19 at 2101 by JOSR HENNING RN HAS SITTER AT BESIDE
--- NOTE | 2019-08-01 19:52 | NUR ---
RN NOTES ADMINISTERED ATIVAN 1MG ORDERED. PATIENT PRESENTS AGITATED AND RESTLESS, NOT COOPERATING WHEN TRYING TO REDIRECT. ATTEMPTING TO PULL OUT IV. REFUSES TO TAKE PO MEDICATION. WILL CONTINUE TO MONITOR.
[2019-08-01 20:00] VITALS: BP 135/53
[2019-08-01 20:21] VITALS: BP 135/53
[2019-08-01] MEDS: Fenofibrate 48 MG TABLET PO SCH (21:28)
[2019-08-01] MEDS: TEMAZEPAM 15 MG CAPSULE PO SCH (21:29)
[2019-08-01] MEDS: HYDROCODONE/APAP 5/325MG 1 EACH TABLET PO PRN (22:52)
[2019-08-02] MEDS: GUAIFENESIN 300 MG/15 ML UDC PO PRN (01:04)
[2019-08-02] MEDS: IPRATROPIUM NEB FS 0.5 MG/2.5 ML AMPUL.NEB NEB SCH ×4 (04:06→15:30)
[2019-08-02] MEDS: ALBUTEROL FS 2.5 MG/3 ML VIAL.NEB NEB SCH ×4 (04:06→15:30)
[2019-08-02] MEDS: PIPERACILLIN /TAZOBACTAM 3.375 G in IV D5W 100 ML IV SCH (06:00)
--- NOTE | 2019-08-02 06:26 | NUR ---
RN NOTES PATIENT REMOVED IV ACCESS, WAS FOUND ON THE FLOOR NEXT TO BED BY SITTER. ATTEMPTED TO REINSERT NEW IV X2, PATIENT REFUSED IV INSERTION AND ZOSYN ADMINISTRATION, STATES HE WANTS TO EAT BREAKFAST FIRST AND HE WILL DO IT ON NEXT SHIFT. PATIENT ADVISED OF RISK AND BENEFITS AND VERBALIZE UNDERSTANDING. CHARGE NURSE MADE AWARE. MD MADE AWARE. WILL CONTINUE TO MONITOR.
--- NOTE | 2019-08-02 06:47 | NUR ---
RN CLOSING NOTES PATIENT AWAKE WALKING HALLS WITH SITTER VIA WHEELCHAIR. A/OX1-2. NO SIGNS OF DISTRESS OR DISCOMFORT. BREATHING EVEN AND UNLABORED. DENIES SI/HI. HAS NO IV ACCESS AT THIS TIME, REFUSING. ALL NEEDS MET. NO SIGNIFICANT CHANGES THROUGH THE NIGHT. BED IN LOW LOCKED POSITION WITH SIDE RAILS X2. CALL LIGHT WITHIN REACH. WILL ENDORSE TO AM SHIFT FOR NERI.
[2019-08-02 06:49] LABS: CALCIUM, SERUM 9.1 mg/dL (8.5-10.1); CREATININE 1.2 mg/dL (0.6-1.3); POTASSIUM 4.3 mmol/L (3.5-5.1)
[2019-08-02 06:51] LABS: BASOPHILS % (AUTO) 0.1 % (0.0-2.0); EOSINOPHILS % (AUTO) 1.9 % (0.0-6.0); HEMATOCRIT 36 % (39-51); HEMOGLOBIN 11.9 g/dL (13.5-17.5); LYMPHOCYTES # (AUTO) 1.4 /CMM (0.8-4.8); LYMPHOCYTES % (AUTO) 12.3 % (20.0-44.0); MEAN CORPUSCULAR HGB CONC 33 g/dl (31.0-36.0); MEAN CORPUSCULAR VOLUME 88 fL (80-96); MONOCYTES # (AUTO) 0.8 /CMM (0.1-1.30); MONOCYTES % (AUTO) 6.8 % (2.0-12.0); NEUTROPHILS % (AUTO) 78.9 % (43.0-81.0); PLATELET COUNT (AUTO) 340 /CMM (150-450); WHITE BLOOD COUNT (AUTO) 11.5 K/uL (4.3-11.0)
--- NOTE | 2019-08-02 07:15 | NUR ---
MS RN NOTES PATIENT IN BED ALERT ORIENTED X 1-2 .NO ACUTE DISTRESS NOTED, BREATHING UNLABORED. NO IV ACCESS AT THIS TIME, REFUSING NEW LINE INSERTION DESPITE OF EXPLANATION OF RISKS AND BENEFITS. SITTER A BED SIDE. SAFETY MEASURES IN PLACE. CALL LIGHT WITHIN REACH. WILL CONTINUE TO MONITOR ACCORDINGLY.
--- NOTE | 2019-08-02 07:25 | NUR ---
MS RN NOTES BALANCE BRIDGE INSPECTOR PEYMAN PAYTON PRESENT ON THE FLOOR MADE AWARE THAT PATIENT REFUSED ZOSYN ADMINISTRATION THIS MORNING AND HAS NO IV ACCESS AT THIS TIME, REFUSING NEW LINE INSERTION DESPITE OF EXPLANATION OF RISKS AND BENEFITS. NO NEW ORDERS MADE AT THIS TIME.
[2019-08-02] MEDS: LEVOTHYROXINE SODIUM 75 MCG TABLET PO SCH (07:30)
[2019-08-02 08:00] VITALS: BP 138/68
[2019-08-02] MEDS: NICOTINE PATCH (14MG) 14 MG PATCH.TD24 TD SCH (08:15)
[2019-08-02] MEDS: CLOZAPINE 100 MG TABLET PO SCH ×3 (08:15→16:31)
[2019-08-02] MEDS: LORAZEPAM 1 MG TABLET PO PRN (08:48)
--- NOTE | 2019-08-02 08:48 | NUR ---
MS BURGESS NOTES PATIENT ANXIOUS ATIVAN GIVEN ORDERED. Addendum: 08/02/19 at 0851 by LOLI REED RN ADDENDUM: VITAL SIGNS STABLE
[2019-08-02] MEDS ORDERED: LEVO750T21 PO (10:08)
--- NOTE | 2019-08-02 10:09 | NUR ---
MS BURGESS NOTES EVER GIVEN ORDERED, VITAL SIGNS STABLE. Addendum: 08/02/19 at 1918 by LOLI REED RN DISREGARD ABOVE NOTES WRONG PATIENT
[2019-08-02] MEDS ORDERED: LEVOFLOXACIN (750 MG) 750 MG TABLET PO SCH (17:00)
--- NOTE | 2019-08-02 18:55 | NUR ---
MS DADO OPERATOR NOTES PATIENT DISCHARGE TO [facility] WITH STABLE VITAL SIGNS. NO ACUTE DISTRESS NOTED. NO SOB NOTED. DISCHARGE INSTRUCTIONS GIVEN TO [facility] JAIDA BURGESS . ALL BELONGINGS ACCOUNTED FOR. PATIENT REFUSED PHOTO TAKEN DESPITE OF EXPLANATION OF RISKS AND BENEFITS. PATIENT ALERT ORIENTED X 1-2. WHEELED TO [facility] ROOM IN STABLE CONDITION.
== END 2019-08-02 19:56 | DRG 871 ==
LOC: TELE 16:20 → MED 07-30 10:14
PROVIDERS: ADMIT Student in an Organized Health Care Education/Training Program; ATTEND Nurse Practitioner Acute Care
DX: A41.9 Sepsis, unspecified organism (principal); J15.9 Unspecified bacterial pneumonia; N17.0 Acute kidney failure with tubular necrosis; J96.02 Acute respiratory failure with hypercapnia; J96.01 Acute respiratory failure with hypoxia; E44.1 Mild protein-calorie malnutrition; F20.0 Paranoid schizophrenia; K21.9 Gastro-esophageal reflux disease without esophagitis; F29 Unspecified psychosis not due to a substance or known physiological condition; E88.09 Other disorders of plasma-protein metabolism, not elsewhere classified; I10 Essential (primary) hypertension; J45.909 Unspecified asthma, uncomplicated; E78.1 Pure hyperglyceridemia; E03.9 Hypothyroidism, unspecified; Z91.19 Patient's noncompliance with other medical treatment and regimen; Z68.36 Body mass index [BMI] 36.0-36.9, adult; Z73.6 Limitation of activities due to disability
CPT/HCPCS: 36415; 71045-TC; 76770-TC; 80048-TC; 80053-TC; 81000-TC; 82550-TC; 82570-TC; 83735-TC; 83880; 84100-TC; 84155-TC; 84300-TC; 85025-TC; 87081-TC; 94799-TC; A4216; G0378; J1956; J2060; J2543; J7030; J7060

== ENCOUNTER 2019-08-02 21:20 | Inpatient (IN) | payer MEDICARE, OTHER ==
[~2019-08-02] VITALS: Ht 162.6 cm; Wt 97.5 kg
[~2019-08-02 21:20] MED LIST changes: +CEPH500C2 PO; +CLOZ100T32 PO; +LEVO750T21 PO; +MAGN400O6 PO; +ZOLP5TAB8 PO
[2019-08-02 21:51] VITALS: BP 128/78
[2019-08-02] MEDS ORDERED: Fenofibrate 48 MG TABLET PO SCH (22:00)
[2019-08-02] MEDS ORDERED: ALBUTEROL FS 2.5 MG/3 ML VIAL.NEB NEB PRN (22:00)
[2019-08-02] MEDS ORDERED: ZOLPIDEM TARTRATE 5 MG TABLET PO PRN (22:00)
[2019-08-02] MEDS ORDERED: MAGNESIUM HYDROXIDE 30 ML UDC PO PRN ×2 (22:00)
[2019-08-02] MEDS ORDERED: ACETAMINOPHEN 325 MG TABLET PO PRN (22:00)
[2019-08-02] MEDS: Fenofibrate 48 MG TABLET PO SCH (22:00)
[2019-08-02] MEDS ORDERED: IPRATROPIUM NEB FS 0.5 MG/2.5 ML AMPUL.NEB NEB PRN (22:30)
[2019-08-02] MEDS ORDERED: GUAIFENESIN 300 MG/15 ML UDC PO PRN (22:30)
--- NOTE | 2019-08-02 22:30 | NUR ---
RN NOTES : PT. REFUSED FULL BODY SKIN ASSESSMENT AND PHOTO TAKEN , ENCOURAGED X3 RISKS AND BENEFITS EXPLINED ,STILL REFUSED AND PT. BEHAVIOUR VERY ANXIOUS UNCOOPRTIVE AT THIS TIME, WILL CONTINUITY WITH CARE.
[2019-08-02] MEDS ORDERED: BLOOD SUGAR DIAGNOSTIC 1 EACH STRIP IN ONE (23:00)
--- NOTE | 2019-08-02 23:00 | NUR ---
RN NOTES : PT. REFUSED FENOFIBRATE 48 MG PO, REFUSE BLOOD SUGAR CHECK, ENCOURAGED X3 RISKS AND BENEFITS EXPLINED ,STILL REFUSED AND PT. BEHAVIOUR VERY UNCOOPRTIVE AT THIS TIME, WILL CONTINUITY WITH CARE.
--- NOTE | 2019-08-02 23:55 | NUR ---
ADMISSION NOTES: ADMITTED THIS 64Y/O FEMALE PATIENT ADMIT FROM [facility]/ [facility], ADMITTED TO GPS ON 5250 HOLD PER HOLD AGRESSIVE , AGITATION AND NOT ABLE TO CONTRACT FOR SAFETY ,UPON FACE TO FACE ASSESSMENT PATIENT IS A&O X1 ANXIOUS ,PARANOID,SCREAMING YELLING, HYPERVERBAL, DELUSIONAL, UNCOOPRTIVE,DISORGNIZED ,EASILY GETS AGITATED, PT. NEEDS FREQUENTLY REDIRECTIONS DENIES SI /HI AT THIS TIME, PT. IS POOR HISTORIAN, POOR INSIGHT ,POOR JUDGEMENT , PT. REFUSED TO SIGNS ADMISSION CONSENT PAPERS DUE TO MENTAL STATUS/ CONFUSED, UNCOOPERTIVE, ENCOURAGED, BOTH MD AWARE AND NOTIFIED OF THE ADMISSION, BELONGINGS CONTRABAND WERE DONE , NURSING ASSESSMENT DONE ,PT. RIGHTS DISCUSS BY SOLUTION COORDINATOR , PROVIDE THE PT. WITH HANDBOOK, AND MEDICATIONS GUIDE, ENVIRONMENTAL SAFETY CHECK DONE, ENCOURAGED PT. VERBALIZED ANY FEELING CONCERN TO STAFF, ORIENT TO UNIT POLICY, NO ACUTE DISTRESS NOTED,VITAL SIGNS WNL ,DENIES ANY PAIN AT THIS TIME,WILL CONTINUE TO MONITOR FOR Q15 SAFETY AND BEHAVIOR.
[2019-08-03] MEDS ORDERED: ACETAMINOPHEN 325 MG TABLET PO SCH (01:00)
[2019-08-03] MEDS: MAG HYDROX/AL HYDROX/SIMETH 30 ML UDC PO PRN (02:35)
[2019-08-03 06:52] LABS: BASOPHILS # (AUTO) 0.1 /CMM (0.0-0.2); BASOPHILS % (AUTO) 0.7 % (0.0-2.0); EOSINOPHILS % (AUTO) 2.8 % (0.0-6.0); HEMATOCRIT 36 % (39-51); HEMOGLOBIN 11.8 g/dL (13.5-17.5); LYMPHOCYTES # (AUTO) 1.7 /CMM (0.8-4.8); LYMPHOCYTES % (AUTO) 13.7 % (20.0-44.0); MEAN CORPUSCULAR HGB CONC 33 g/dl (31.0-36.0); MEAN CORPUSCULAR VOLUME 87 fL (80-96); MONOCYTES # (AUTO) 0.8 /CMM (0.1-1.30); MONOCYTES % (AUTO) 6.5 % (2.0-12.0); NEUTROPHILS # (AUTO) 9.4 /CMM (1.8-8.9); NEUTROPHILS % (AUTO) 76.3 % (43.0-81.0); PLATELET COUNT (AUTO) 354 /CMM (150-450); RED BLOOD CELL COUNT(AUTO) 4.08 MIL/uL (4.5-6.0); WHITE BLOOD COUNT (AUTO) 12.3 K/uL (4.3-11.0)
[2019-08-03] MEDS ORDERED: LEVOTHYROXINE SODIUM 150 MCG TABLET PO SCH (07:00)
[2019-08-03 07:11] LABS: CALCIUM, SERUM 8.9 mg/dL (8.5-10.1); CREATININE 1.3 mg/dL (0.6-1.3); POTASSIUM 4.4 mmol/L (3.5-5.1)
[2019-08-03] MEDS ORDERED: LEVOTHYROXINE SODIUM 75 MCG TABLET PO SCH (07:30)
[2019-08-03 08:00] VITALS: BP 133/92
[2019-08-03] MEDS: BENAZEPRIL HCL 10 MG TABLET PO SCH (08:37)
[2019-08-03] MEDS: NICOTINE PATCH (14MG) 14 MG PATCH.TD24 TD SCH ×2 (08:37→08:41)
[2019-08-03] MEDS ORDERED: BENAZEPRIL HCL 10 MG TABLET PO SCH (09:00)
[2019-08-03] MEDS: LEVOTHYROXINE SODIUM 75 MCG TABLET PO SCH (09:13)
--- NOTE | 2019-08-03 11:52 | NUR ---
Pt. rerfused for wjole body assessment and stating that he is ok.
[2019-08-03] MEDS: LORAZEPAM 1 MG TABLET PO PRN (13:13)
--- NOTE | 2019-08-03 13:47 | NUR ---
RN-CO: Tried to call patient's mother Dunia Graham , nobody is answering.
[2019-08-03 16:00] VITALS: BP 95/55
[2019-08-03] MEDS ORDERED: LEVOFLOXACIN (750 MG) 750 MG TABLET PO SCH (17:00)
[2019-08-03 20:30] VITALS: BP 110/65
[2019-08-03 21:02] VITALS: BP 92/68
[2019-08-03] MEDS: CLOZAPINE 100 MG TABLET PO SCH (21:20)
[2019-08-03] MEDS: Fenofibrate 48 MG TABLET PO SCH (22:13)
--- NOTE | 2019-08-04 02:19 | NUR ---
GPS RN NOTE: INSOMNIA PATIENT IS UNABLE TO SLEEP, RESTLESS, PRN AMBIEN 5 MG 1 TAB PO GIVEN. WILL REASSESS FOR EFFECTIVENESS.
[2019-08-04] MEDS: LORAZEPAM 1 MG TABLET PO PRN (03:30)
--- NOTE | 2019-08-04 03:30 | NUR ---
GPS RN NOTE: ANXIETY PATIENT IS VERY ANXIOUS, RESTLESS, UNABLE TO SLEEP, HYPERVERBAL, LABILE. PRN ATIVAN 1 MG 1 TAB PO GIVEN. WILL CONTINUE TO MONITOR FOR MOOD, SAFETY & BEHAVIOR.
--- NOTE | 2019-08-04 06:25 | NUR ---
GPS RN CLOSING NOTE PATIENT DID NOT SLEEP WELL AT NIGHT, HAS BEEN RESTLESS MOST OF THE NIGHT, REDIRECTABLE. ON 1:1 SUPERVISION PRN FOR SAFETY, PT. WAS IN & OUT OF BED. PRN MEDS WERE GIVEN ORDERED BUT INEFFECTIVE. NEEDS FREQUENT REDIRECTIONS & REDIRECTIONS PROVIDED. AMBULATORY WITH STEADY GAIT. SNACK & FLUIDS WERE GIVEN & TOLERATED WELL. A & O X 2, CONFUSED, FORGETFUL, PARANOID, RESPONDS TO INTERNAL STIMULI, GARBLED SPEECH, HYPERVERBAL, LABILE. KEPT REMOVING HIS GOWN AT NIGHT. SAFETY MEASURES MAINTAINED. NO ACUTE CHANGE OF CONDITION NOTED. WILL ENDORSE TO AM RN FOR CONTINUITY OF CARE.
[2019-08-04] MEDS ORDERED: LEVOTHYROXINE SODIUM 75 MCG TABLET PO SCH ×2 (07:30→09:00)
[2019-08-04 08:00] VITALS: BP 115/85
[2019-08-04] MEDS: LEVOTHYROXINE SODIUM 75 MCG TABLET PO SCH (09:54)
[2019-08-04] MEDS: CLOZAPINE 100 MG TABLET PO SCH ×4 (09:55→21:11)
[2019-08-04] MEDS: NICOTINE PATCH (14MG) 14 MG PATCH.TD24 TD SCH (09:55)
[2019-08-04] MEDS: BENAZEPRIL HCL 10 MG TABLET PO SCH (09:55)
[2019-08-04 16:00] VITALS: BP 135/89
[2019-08-04] MEDS: LEVOFLOXACIN (250MG) 250 MG TABLET PO SCH (17:21)
[2019-08-04 20:00] VITALS: BP 112/74
[2019-08-04 20:31] VITALS: BP 112/74
[2019-08-04] MEDS: Fenofibrate 48 MG TABLET PO SCH (21:45)
--- NOTE | 2019-08-04 21:45 | NUR ---
REFUSED BODY ASSESSMENT PATIENT REFUSED WEEKLY SKIN ASSESSMENT, EASILY AGITATED, DOES NOT SIT STILL, KEEPS MOVING AROUND, PACES IN THE HALLWAY, EASILY ANXIOUS & RESTLESS. GARBLED SPEECH & WALKS AWAY WHEN ATTEMPTED TO DO SKIN ASSESSMENT. REFUSED TO BE TOUCHED & SWINGS HIS ARMS AROUND AT TIMES. PT. IS UNCOOPERATIVE WITH FULL BODY ASSESSMENT DUE TO MENTAL HEALTH CONDITION.
--- NOTE | 2019-08-05 06:21 | NUR ---
PRN ROBITUSSIN GIVE PATIENT NOTED WITH COUGH INTERMITTENTLY, PRN ROBITUSSIN 15ML GIVEN. WILL CONTINUE TO MONITOR.
[2019-08-05] MEDS: LEVOTHYROXINE SODIUM 75 MCG TABLET PO SCH (07:30)
[2019-08-05 08:00] VITALS: BP 112/60
[2019-08-05] MEDS: CLOZAPINE 100 MG TABLET PO SCH ×4 (09:08→21:42)
[2019-08-05] MEDS: NICOTINE PATCH (14MG) 14 MG PATCH.TD24 TD SCH (09:09)
[2019-08-05] MEDS: BENAZEPRIL HCL 10 MG TABLET PO SCH (09:09)
--- NOTE | 2019-08-05 09:55 | NUR ---
Facility Contact: NADIA called [facility] ([phone]) and received a voice message automatically as usual. NADIA contacted Sarah ([phone]) and informed her that she has not been able to contact the facility and sent a video of the SW making an attempt as she stated that the phones are working. NADIA asked Sarah to have the facility call the SW directly.
--- NOTE | 2019-08-05 09:59 | NUR ---
Psychosocial Note: I, Sammie Muniz PRODUCT MARKETING DIRECTOR, attest to the patients previous psychosocial information dated on 07/25/19. Update On Events leading to Admission and Discharge Plan: Pt has returned to the geropsych unit of the hospital within a week of his previous discharge date (07/29/19). Pt was discharged to the Medical Floor and then the pt came back to the Geriatric Psychiatric Unit on 08/02/19. Per hold, the pt was brought in from [facility] [place] due to being aggressive towards staff, throwing things and non compliant with care. Upon face to face assessment, pt is alert and knows his name and that this is [facility]. Pt is disoriented and disorganized. Pt is a poor historian. Pt is agitated, paranoid and delusional. Pts judgment impaired. Poor insight and poor impulse control. Pt is manic with pressured speech. Pt is unable to provide for his food, jail or clothing due to his mental illness and the facility cannot provide the same due to his behavior. Upon social work manager evaluation, the pt appears to disoriented, confused and disorganized. Pt appears to be in a labile mood and presents with a distressed affect. NADIA called both the [facility] facility ([phone]) and the pts mother, Dunia ([phone]), and was unable to make contact and receive further information. Pts insight and judgment appear to be impaired and the pts impulse control is poor. NADIA spoke to Sarah ([phone]), Solids Control Technician for Dr. Nicholas, who stated that the pt will be accepted back to [facility] [place].
--- NOTE | 2019-08-05 10:08 | NUR ---
Family Contact: SW called the pts mother, Dunia ([phone]), and she stated that she is linux vmware administrator at a previous facility of the pts and she is not his mother and does not have any current relationship with the pt. She asked that the hospital cease calling her regarding this pt.
[2019-08-05 16:00] VITALS: BP 125/76
[2019-08-05] MEDS: LEVOFLOXACIN (250MG) 250 MG TABLET PO SCH (17:46)
[2019-08-05 21:07] VITALS: BP 121/83
[2019-08-05] MEDS: Fenofibrate 48 MG TABLET PO SCH (21:42)
[2019-08-06] MEDS: LEVOTHYROXINE SODIUM 75 MCG TABLET PO SCH (07:43)
[2019-08-06 08:00] VITALS: BP 97/50
[2019-08-06] MEDS: BENAZEPRIL HCL 10 MG TABLET PO SCH (08:42)
[2019-08-06] MEDS: CLOZAPINE 100 MG TABLET PO SCH ×4 (08:42→20:48)
[2019-08-06] MEDS: NICOTINE PATCH (14MG) 14 MG PATCH.TD24 TD SCH (08:47)
--- NOTE | 2019-08-06 09:00 | NUR ---
RN NOTE- PT IN ROOM RESTING QUIETLY, EASILY AROUSED, ORIENTED TO PERSON ONLY, CONFUSION PRESENT, PT EASILY AGITATED THOUGH DIRECTABLE AND REMAINING CALM. DENIES SI HI AH VH AT PRESENT. MED COMPLIANT, ATE 100% MEAL.
[2019-08-06] MEDS: LORAZEPAM 1 MG TABLET PO PRN (10:34)
--- NOTE | 2019-08-06 10:35 | NUR ---
RN NOTE- [id number]/ PT AGITATED , REQUESTING PRN RX. ATIVAN 1 MG GIVEN.
--- NOTE | 2019-08-06 11:40 | NUR ---
RN NOTE- AGITATION/ PRN ATIVAN EFFECTIVE. PT CALM.
[2019-08-06 16:00] VITALS: BP 144/61
[2019-08-06] MEDS: LEVOFLOXACIN (250MG) 250 MG TABLET PO SCH (17:52)
[2019-08-06] MEDS: Fenofibrate 48 MG TABLET PO SCH (20:49)
[2019-08-06 21:46] VITALS: BP 121/91
[2019-08-07] MEDS: LEVOTHYROXINE SODIUM 75 MCG TABLET PO SCH (07:37)
[2019-08-07 08:00] VITALS: BP 109/61
[2019-08-07] MEDS: BENAZEPRIL HCL 10 MG TABLET PO SCH (09:00)
--- NOTE | 2019-08-07 09:00 | NUR ---
RN NOTE- SLEEPING IN ROOM, EASILY AWAKENED. PO INTAKE GOOD, MED COMPLIANT, LESS IRRITABLE AND CLEARER THINKING. DENIES SI HI AH VH. STATES HE DOES 'FEEL BETTER
[2019-08-07] MEDS: CLOZAPINE 100 MG TABLET PO SCH ×4 (09:06→21:00)
[2019-08-07] MEDS: NICOTINE PATCH (14MG) 14 MG PATCH.TD24 TD SCH (09:06)
[2019-08-07 12:09] LABS: BASOPHILS % (AUTO) 0.3 % (0.0-2.0); EOSINOPHILS % (AUTO) 0.9 % (0.0-6.0); HEMATOCRIT 41 % (39-51); HEMOGLOBIN 13.2 g/dL (13.5-17.5); LYMPHOCYTES # (AUTO) 1.1 /CMM (0.8-4.8); LYMPHOCYTES % (AUTO) 12.1 % (20.0-44.0); MEAN CORPUSCULAR HGB CONC 32 g/dl (31.0-36.0); MEAN CORPUSCULAR VOLUME 88 fL (80-96); MONOCYTES # (AUTO) 0.3 /CMM (0.1-1.30); MONOCYTES % (AUTO) 3.2 % (2.0-12.0); NEUTROPHILS # (AUTO) 7.6 /CMM (1.8-8.9); NEUTROPHILS % (AUTO) 83.5 % (43.0-81.0); PLATELET COUNT (AUTO) 343 /CMM (150-450); RED BLOOD CELL COUNT(AUTO) 4.63 MIL/uL (4.5-6.0); WHITE BLOOD COUNT (AUTO) 9.1 K/uL (4.3-11.0)
--- NOTE | 2019-08-07 15:25 | NUR ---
SNF Referral: NADIA faxed a referral to Sarah (Dr. Cristopher Maharaj) to the fax number: [phone]. She stated that she would provide the with a room number for [facility].
--- NOTE | 2019-08-07 15:25 | NUR ---
Group Note: SW encouraged pt to attend group therapy on 08/07/19 at 2pm discussing discharge planning but the pt refused to attend and stated that he does not need group therapy. SW stated that the pt was going to be discharged to a intermediate facility the following day and the pt was not comprehending this plan and became agitated. Pt presented as verbally and physically aggressive so the SW deemed the pt inappropriate for group at this time.
[2019-08-07 16:00] VITALS: BP 99/55
[2019-08-07] MEDS: LEVOFLOXACIN (250MG) 250 MG TABLET PO SCH (16:51)
--- NOTE | 2019-08-07 19:20 | NUR ---
RN NOTES: PT. IN HALLWAY, DELUSIONAL, LABILE, HYPERVERBAL, PARANOID , NEEDY ,DISORGNIZED EASILY AGITATED , TALKING TO SELF, ALL NEEDS ATTENDED ANTICIPATED, ENCOURAGED PT. TO VERBALIZED ANY FEELING , NO ACUTE DISTRESS NOTED , NEEDS FREQUENTLY REDIRECTIONS , REALITY ORIENTIONS PROVIDED, WILL CONTINUITY WITH CARE.
[2019-08-07] MEDS: MAG HYDROX/AL HYDROX/SIMETH 30 ML UDC PO PRN (20:00)
--- NOTE | 2019-08-07 20:00 | NUR ---
RN NOTES: PT. C/O INDIGESTION , PRN MAALOX 30 ML PO GIVEN , WILL CONTINUE TO MONITOR.
[2019-08-07 20:15] VITALS: BP 136/75
[2019-08-07] MEDS ORDERED: CALCIUM CARBONATE 500 MG TAB.CHEW PO PRN (21:00)
--- NOTE | 2019-08-07 21:03 | NUR ---
GPS RN NOTE, PATIENT HAS A COMPLAINT OF INDIGESTION AND CHEST PAIN AT 7 OUT 10 ON PAIN SCALE. PATIENT VITAL SIGNS ARE FOLLOWS B/P 129/91, HR 106, SPO2 95 %, TEMP 98.1, AND RESPIRATIONS 18. PATIENT PLACED ON 2 LITERS OF O2 VIA NASAL CANNULA. PAGED [facility] AND INFORMED NANCY SMITHLOCATED [facility]IN [facility]. [facility], STAT TROPONIN, CALCIUM CARBONATE 500MG 1 TAB PO Q12HR PRN. ALL ORDERS NOTED AND CARRIED OUT WILL CONTINUE TO MONITOR THIS PATIENT.
[2019-08-07] MEDS: Fenofibrate 48 MG TABLET PO SCH (21:58)
[2019-08-07] MEDS: LORAZEPAM 1 MG TABLET PO PRN (22:16)
--- NOTE | 2019-08-07 22:18 | NUR ---
RN NOTES: ANXIETY PT. NOTED VERY, ANXIOUS ,RESTLESS, PARANOID HYPERVERBAL , ATIVAN 1 MG PO PRN GIVEN PER PT. REQUEST , WILL CONTINUE TO MONITOR.
[2019-08-07 22:20] VITALS: BP 122/69
--- NOTE | 2019-08-08 07:01 | NUR ---
RN NOTES: PT. RESTING WELL AT THIS TIME NO ACUTE DISTRESS NOTED, DENIES ANY INDIGESTION AND DENIES ANY CHEST DISCOMFORT AT THIS TIME , WILL ENDORSE TO ON COMING NURSE FOR CONTINUITY OF CARE.
--- NOTE | 2019-08-08 07:10 | NUR ---
RN NOTES: PT. RESTING WELL AT THIS TIME NO ACUTE DISTRESS NOTED,NO SOB NOTED, DENIES ANY INDIGESTION AND DENIES ANY CHEST DISCOMFORT AT THIS TIME , WILL ENDORSE TO ON COMING NURSE FOR CONTINUITY OF CARE.
[2019-08-08 08:00] VITALS: BP 130/88
[2019-08-08] MEDS: NICOTINE PATCH (14MG) 14 MG PATCH.TD24 TD SCH (08:07)
[2019-08-08 08:08] VITALS: BP 130/88
[2019-08-08] MEDS: LEVOTHYROXINE SODIUM 75 MCG TABLET PO SCH (08:08)
[2019-08-08] MEDS: BENAZEPRIL HCL 10 MG TABLET PO SCH (08:08)
[2019-08-08] MEDS: CLOZAPINE 100 MG TABLET PO SCH ×2 (08:08→12:09)
--- NOTE | 2019-08-08 09:05 | NUR ---
RN-CO: FR ELAINE (COVERING FOR DR CRUZ) GAVE AND ORDER TO DISCONTINUE HOLD AND DISCHARGE PATIENT.
--- NOTE | 2019-08-08 10:49 | NUR ---
GPS RN NOTE: RECEIVED PATIENT RESTING IN BED. DRESSED IN STREET CLOTHES. PREPARING FOR DISCHARGE. PATIENT IS PLEASANT, MED COMPLIANT AND COMPLIANT WITH PLAN OF CARE. NO SIGNS OF AGGRESSION. NO SIGNS OF DISTRESS. NO SOB. DENIES SI/HI AND VAH. WILL CONTINUE TO MONITOR PATIENT Q15 FOR MOOD, SAFETY AND BEHAVIOR.
--- NOTE | 2019-08-08 12:29 | NUR ---
GPS RN NOTE: DISCHARGE PATIENT IS A 58 MALE DISCHARGED TO [facility]. PATIENT IS IN STABLE CONDITION. VSS. NO ACUTE DISTRESS NOTED. NO COMPLAINTS. COMPLIANT WITH MEDICATION MANAGEMENT. COOPERATIVE WITH PLAN OF CARE. PSYCHIATRIC TREATMENT PLANS MET. MEDICAL TREATMENT PLANS DEFERRED FOR CONTINUAL MONITORING. DENIES SI/HI VAH AT THE TIME OF DISCHARGE. PATIENT REFUSED BODY CHECK AND SKIN ASSESSMENT. NO VISIBLE WOUNDS NOTICED. EDUCATED PATIENT ABOUT AFTERCARE WITH COPY PROVIDED. RETURNED PERSONAL BELONGINGS TO PATIENT. MEDICATIONS RECONCILED WITH DR ELAINE ALONG WITH PSYCHIATRIC DISCHARGE ORDERS. MEDICAL MEDICATIONS RECONCILED WITH MAGALI HAYWOOD NP. DISCHARGE PAPERWORK SIGNED. FOR FOLLOW UP WITH PSYCHIATRIST AND CALL MANAGER WITHIN 1 WEEK. PATIENT LEFT THE [facility]IA AMBULANCE AT 1225.
--- NOTE | 2019-08-08 14:13 | NUR ---
Discharge Note: Pt was discharged to [facility] located at [address] [place] [address]; in Rm 2A. Pt will be transported via [facility] at 12PM. There was no one to notify regarding this discharge. Upon discharge, the pt appears to be in a dysphoric mood and presents with a distressed affect. Pt appeared to be alert and oriented x4 (time, place, self and situation). Pt denied both suicidal and homicidal ideation as well as auditory and visual hallucinations. Pt is ambulatory with a steady gait. Pt will continue to be under his psychiatrist, Dr. Saurabh Nicholas, located at [address] [place] [address] [address] [address]; and will be under the care of fuel house attendant, Dr. Mamadou Florez, located at [address] [place] [address], [phone]; .
== END 2019-08-08 12:25 | DRG 885 ==
LOC: GPS 21:20
PROVIDERS: ADMIT Psychiatry & Neurology Psychiatry; ATTEND Internal Medicine
DX: F20.0 Paranoid schizophrenia (principal); J15.9 Unspecified bacterial pneumonia; F29 Unspecified psychosis not due to a substance or known physiological condition; E78.5 Hyperlipidemia, unspecified; E03.9 Hypothyroidism, unspecified; F03.90 Unspecified dementia, unspecified severity, without behavioral disturbance, psychotic disturbance, mood disturbance, and anxiety; R79.89 Other specified abnormal findings of blood chemistry; I10 Essential (primary) hypertension; K21.9 Gastro-esophageal reflux disease without esophagitis; F41.9 Anxiety disorder, unspecified; F32.9 Major depressive disorder, single episode, unspecified; M62.81 Muscle weakness (generalized); E66.9 Obesity, unspecified; Z68.36 Body mass index [BMI] 36.0-36.9, adult; F17.210 Nicotine dependence, cigarettes, uncomplicated; J45.909 Unspecified asthma, uncomplicated; M19.90 Unspecified osteoarthritis, unspecified site
CPT/HCPCS: 36415; 80048-TC; 80061-TC; 84484-TC; 85025-TC

== ENCOUNTER 2021-01-08 11:32 | Emergency (ER) | payer MEDICARE, OTHER ==
[~2021-01-08] VITALS: Ht 170.2 cm; Wt 104.3 kg
[~2021-01-08 11:32] MED LIST changes: -CEPH500C2 PO
--- NOTE | 2021-01-08 11:37 | NUR ---
dr ennis at bedside for eval.
--- NOTE | 2021-01-08 12:05 | NUR ---
iv line started, blood drawn and sent to lab.
[2021-01-08 12:11] LABS: BASOPHILS # (AUTO) 0.1 K/uL (0.0-0.2); BASOPHILS % (AUTO) 0.8 % (0.0-2.0); EOSINOPHILS % (AUTO) 2.8 % (0.0-6.0); HEMATOCRIT 42 % (39-51); LYMPHOCYTES # (AUTO) 1.8 K/uL (0.8-4.8); LYMPHOCYTES % (AUTO) 14.4 % (20.0-44.0); MEAN CORPUSCULAR HGB CONC 33 g/dl (31.0-36.0); MEAN CORPUSCULAR VOLUME 89 fL (80-96); MONOCYTES # (AUTO) 0.5 K/uL (0.1-1.30); MONOCYTES % (AUTO) 4.2 % (2.0-12.0); NEUTROPHILS # (AUTO) 9.5 K/uL (1.8-8.9); NEUTROPHILS % (AUTO) 77.8 % (43.0-81.0); PLATELET COUNT (AUTO) 273 K/uL (150-450); RED BLOOD CELL COUNT(AUTO) 4.76 MIL/uL (4.5-6.0); WHITE BLOOD COUNT (AUTO) 12.2 K/uL (4.3-11.0)
[2021-01-08 12:21] LABS: CALCIUM, SERUM 9.2 mg/dL (8.5-10.1); CARBON DIOXIDE 25 mmol/L (21-32); CHLORIDE 108 mmol/L (98-107); CREATININE 1.1 mg/dL (0.6-1.3); GLUCOSE 125 mg/dL (74-106); POTASSIUM 4.1 mmol/L (3.5-5.1); SODIUM SERUM 141 mmol/L (136-145); UREA NITROGEN, BLOOD 22 mg/dL (7-18)
--- NOTE | 2021-01-08 12:50 | NUR ---
[facility] CALLED PRISCILLA YOUNG IS 60 MINS.
--- NOTE | 2021-01-08 13:02 | NUR ---
IV removed. Catheter intact and site benign. Pressure and 4x4 applied to site. No bleeding noted.
--- NOTE | 2021-01-08 14:21 | NUR ---
Patient discharged in stable condition going to assigned facility. Written and verbal after care instructions given. Patient verbalizes understanding of instruction. advertising dispatch clerks supervisor done via arranged transpo
[2021-01-08 14:22] VITALS: BP 137/79
== END 2021-01-08 14:22 ==
LOC: ER 11:50
DX: R07.89 Other chest pain (principal); R56.9 Unspecified convulsions; I10 Essential (primary) hypertension; K21.9 Gastro-esophageal reflux disease without esophagitis; E11.9 Type 2 diabetes mellitus without complications; F17.200 Nicotine dependence, unspecified, uncomplicated; Z88.8 Allergy status to other drugs, medicaments and biological substances; Z79.899 Other long term (current) drug therapy
CPT/HCPCS: 36415; 71045-TC; 80048-TC; 84484-TC; 85025-TC